=== PATIENT | male | born 1985 | race Caucasian/White ===

== ENCOUNTER 2022-04-02 18:09 | Emergency (ER) | payer SELFPAY ==
[~2022-04-02] VITALS: Ht 185.4 cm; Wt 127.3 kg
[2022-04-02] VITALS (8 sets, daily range): BP systolic 146–171; BP diastolic 78–110
[2022-04-02 19:14] LABS: HEMATOCRIT 42.4 % (39.0-50.0); HEMOGLOBIN 14.1 g/dl (14.0-18.0); IMMATURE GRANULOCYTES 0.6 % (0.0-5.0); MEAN CELL VOLUME 86.7 fL CALC (80.0-100.0); MEAN CORPUSCULAR HGB 28.8 pG CALC (26.0-32.0); MEAN CORPUSCULAR HGB CONC 33.3 g/dL CAL (32.0-36.0); NEUT# 4.96 thou/uL (1.82-7.42); RED BLOOD COUNT 4.89 mill/uL (4.70-6.10); RED CELL DISTRI WIDTH 14.4 % (11.5-15.5)
[2022-04-02 19:24] LABS: ALBUMIN 4.2 g/dL (3.2-5.0); ALKALINE PHOSPHATASE 89 u/l (38-126); AMYLASE 80 u/l (30-110); ANION GAP 14 (6-22 (CALC)); BILIRUBIN, TOTAL 0.8 mg/dL (0.0-1.4); BUN 18 mg/dL (9-20); BUN/CREATININE RATIO 19 (12-20 (CALC)); CARBON DIOXIDE 23 mmol/l (22-30); CHLORIDE 108 mmol/l (95-108); GFR > 60 ML/MIN (>=60 (CALC)); GFR FOR AFR.AMER. > 60 ML/MIN (>=60 (CALC)); SGOT/AST 37 u/l (17-59); SODIUM 141 mmol/l (137-146); TOTAL PROTEIN 7.2 g/dL (6.3-8.2)
[2022-04-02 19:36] LABS: MYOGLOBIN 65 ng/mL (0 - 121)
[2022-04-02 20:39] LABS: URINE BILIRUBIN - DIPSTICK NEGATIVE (NEGATIVE); URINE BLOOD DIPSTICK NEGATIVE (NEGATIVE); URINE COLOR YELLOW; URINE GLUCOSE - DIPSTICK NEGATIVE (NEGATIVE); URINE KETONE NEGATIVE (NEGATIVE); URINE LEUK ESTERASE NEGATIVE (NEGATIVE); URINE NITRITE - DIPSTICK NEGATIVE (Negative); URINE PH 5.5 (4.5-8.0); URINE PROTEIN - DIPSTICK NEGATIVE (NEG-TRACE); URINE SPECIFIC GRAVITY 1.015; URINE UROBILINOGEN - DIPSTICK 0.2 E.U./dL (0.2)
[2022-04-02] MEDS ORDERED: PREVACID30 M3 PO (20:48)
[2022-04-02] MEDS ORDERED: ONDANSETRON4 MG PO (20:48)
[2022-04-03] MEDS ORDERED: HYDROCO/APAP1 TA9 PO (12:51)
== END 2022-04-02 21:26 | disposition home or self-care (01) | DRG 392 ==
LOC: ED 18:09
PROVIDERS: Emergency Medicine
DX: K29.20 Alcoholic gastritis without bleeding (principal); F10.10 Alcohol abuse, uncomplicated; Z20.822 Contact with and (suspected) exposure to COVID-19
CPT/HCPCS: Q9967; S0164

== ENCOUNTER 2022-04-03 09:07 | Emergency (ER) | payer SELFPAY ==
[~2022-04-03] VITALS: Ht 185.4 cm; Wt 125.0 kg
[~2022-04-03 09:07] MED LIST: ONDANSETRON4 MG PO; PREVACID30 M3 PO
[2022-04-03 09:48] VITALS: BP 171/103
[2022-04-03 10:02] VITALS: BP 172/89
[2022-04-03 10:11] LABS: HEMATOCRIT 47.2 % (39.0-50.0); HEMOGLOBIN 15.5 g/dl (14.0-18.0); IMMATURE GRANULOCYTES 0.6 % (0.0-5.0); MEAN CELL VOLUME 88.1 fL CALC (80.0-100.0); MEAN CORPUSCULAR HGB 28.9 pG CALC (26.0-32.0); MEAN CORPUSCULAR HGB CONC 32.8 g/dL CAL (32.0-36.0); NEUT# 6.29 thou/uL (1.82-7.42); RED BLOOD COUNT 5.36 mill/uL (4.70-6.10); RED CELL DISTRI WIDTH 14.4 % (11.5-15.5)
[2022-04-03 10:26] LABS: ALBUMIN 4.4 g/dL (3.2-5.0); ALKALINE PHOSPHATASE 93 u/l (38-126); ANION GAP 15 (6-22 (CALC)); BUN 17 mg/dL (9-20); BUN/CREATININE RATIO 22 (12-20 (CALC)); CARBON DIOXIDE 25 mmol/l (22-30); CHLORIDE 104 mmol/l (95-108); CREATININE 0.8 mg/dL (0.7-1.3); GFR FOR AFR.AMER. > 60 ML/MIN (>=60 (CALC)); GFR OTHER RACES > 60 ML/MIN (>=60 (CALC)); LIPASE 96 u/l (23-300); POTASSIUM 4.5 mmol/l (3.5-5.1); SODIUM 139 mmol/l (137-146); TOTAL PROTEIN 7.8 g/dL (6.3-8.2)
[2022-04-03 10:27] LABS: BILIRUBIN, TOTAL 1.2 mg/dL (0.0-1.4); SGOT/AST 77 u/l (17-59)
[2022-04-03 10:31] VITALS: BP 152/94
[2022-04-03 11:01] VITALS: BP 171/99
[2022-04-03] MEDS ORDERED: HYDROCO/APAP1 TA9 PO (12:51)
[2022-04-03 13:09] VITALS: BP 171/99
== END 2022-04-03 13:20 | disposition home or self-care (01) | DRG 392 ==
LOC: ED 09:07
PROVIDERS: Family Medicine
DX: R10.11 Right upper quadrant pain (principal); F17.200 Nicotine dependence, unspecified, uncomplicated; Z87.11 Personal history of peptic ulcer disease; Z20.822 Contact with and (suspected) exposure to COVID-19
CPT/HCPCS: S0164

== ENCOUNTER 2022-04-12 11:17 | Emergency (ER) | payer SELFPAY ==
[~2022-04-12] VITALS: Ht 185.4 cm; Wt 127.0 kg
[~2022-04-12 11:17] MED LIST changes: +HYDROCO/APAP1 TA9 PO
[2022-04-12] MEDS ORDERED: BUSPIRONE5 MG PO (11:43)
[2022-04-12] MEDS ORDERED: VISTARIL 50MG C50 M1 PO ×2 (11:44→12:23)
[2022-04-12] MEDS ORDERED: TRAZODONE100 MG PO ×2 (11:44→12:23)
[2022-04-12] MEDS ORDERED: BUSPIRONE30 MG PO (12:23)
[2022-04-12 12:32] VITALS: BP 156/112
== END 2022-04-12 12:38 | disposition home or self-care (01) | DRG 951 ==
LOC: ED 11:17
DX: Z76.0 Encounter for issue of repeat prescription (principal); F31.9 Bipolar disorder, unspecified; F41.9 Anxiety disorder, unspecified; F17.290 Nicotine dependence, other tobacco product, uncomplicated

== ENCOUNTER 2022-04-16 12:40 | Emergency (ER) | payer SELFPAY ==
[~2022-04-16] VITALS: Ht 185.4 cm; Wt 127.0 kg
[~2022-04-16 12:40] MED LIST changes: +BUSPIRONE30 MG PO; +BUSPIRONE5 MG PO; +TRAZODONE100 MG PO; +VISTARIL 50MG C50 M1 PO
[2022-04-16] MEDS ORDERED: TRAZODONE100 MG PO (13:20)
[2022-04-16] MEDS ORDERED: BUSPIRONE30 MG PO (13:20)
[2022-04-16] MEDS ORDERED: PREVACID30 M2 PO (13:20)
[2022-04-16] MEDS ORDERED: HYDROXYZ PAM50 MG PO (13:20)
[2022-04-16 13:21] VITALS: BP 152/92
== END 2022-04-16 13:33 | disposition home or self-care (01) | DRG 951 ==
LOC: ED 12:40
DX: Z76.0 Encounter for issue of repeat prescription (principal); F31.9 Bipolar disorder, unspecified; F41.9 Anxiety disorder, unspecified; G47.00 Insomnia, unspecified; K29.70 Gastritis, unspecified, without bleeding; F17.200 Nicotine dependence, unspecified, uncomplicated

== ENCOUNTER 2022-05-04 09:15 | Observation (INO) | payer SELFPAY ==
[2022-05-04] VITALS (14 sets, daily range): BP systolic 129–170; BP diastolic 80–119
[~2022-05-04] VITALS: Ht 185.4 cm; Wt 130.0 kg
[~2022-05-04 09:15] MED LIST changes: +HYDROXYZ PAM50 MG PO; +PREVACID30 M2 PO
--- NOTE | 2022-05-04 09:25 | NUR ---
PATIENT TO ROOM 14
[2022-05-04 10:08] LABS: HEMOGLOBIN 15.6 g/dl (14.0-18.0); IMMATURE GRANULOCYTES 0.5 % (0.0-5.0); MEAN CELL VOLUME 86.7 fL CALC (80.0-100.0); MEAN CORPUSCULAR HGB 28.8 pG CALC (26.0-32.0); MEAN CORPUSCULAR HGB CONC 33.2 g/dL CAL (32.0-36.0); NEUT# 9.69 thou/uL (1.82-7.42); RED BLOOD COUNT 5.42 mill/uL (4.70-6.10); RED CELL DISTRI WIDTH 13.6 % (11.5-15.5)
--- NOTE | 2022-05-04 10:10 | NUR ---
TRANSITION OF CARE REPORT TO ERIC DAY
--- NOTE | 2022-05-04 10:10 | NUR ---
PT TO IMAGING AT THIS TIME, NAD NOTED. A&OX3, RPT RECEIVED FROM PANCHO ADY.
[2022-05-04 10:20] LABS: ALBUMIN 4.8 g/dL (3.2-5.0); ALKALINE PHOSPHATASE 84 u/l (38-126); ANION GAP 15 (6-22 (CALC)); BILIRUBIN, TOTAL 1.1 mg/dL (0.0-1.4); BUN 21 mg/dL (9-20); BUN/CREATININE RATIO 23 (12-20 (CALC)); CARBON DIOXIDE 24 mmol/l (22-30); CHLORIDE 102 mmol/l (95-108); CREATININE 0.9 mg/dL (0.7-1.3); GFR FOR AFR.AMER. > 60 ML/MIN (>=60 (CALC)); GFR OTHER RACES > 60 ML/MIN (>=60 (CALC)); LIPASE 102 u/l (23-300); POTASSIUM 4.6 mmol/l (3.5-5.1); SGOT/AST 49 u/l (17-59); SODIUM 137 mmol/l (137-146); TOTAL PROTEIN 8.6 g/dL (6.3-8.2)
--- NOTE | 2022-05-04 10:23 | NUR ---
PT BACK FROM CT AT THIS TIME, STATES HE HAS PAIN AGAIN WITH NAUSEA. STATES ITS 07/15, PT GIVEN EMESIS BAG. NAD NOTED. FLAP PRESSER NOTIFIED DR WEBBER OF PTS PAIN/NAUSEA. ORDERS PLACED.
--- NOTE | 2022-05-04 10:34 | NUR ---
PT MEDICATED FOR PAIN AT THIS TIME. CALL NGUYEN IN REACH, URINAL PROVIDED AT BEDSIDE. PT AWARE URINE SAMPLE IS NEEDED. NO FURTHER NEEDS AT THIS TIME.
--- NOTE | 2022-05-04 11:08 | NUR ---
PT TO US AT THIS TIME, NAD NOTED.
--- NOTE | 2022-05-04 11:23 | NUR ---
PT BACK FROM US AT THIS TIME. NAD NOTED.
--- NOTE | 2022-05-04 11:30 | NUR ---
PT PROVIDED URINE AT THIS TIME, COLLECTED AND SENT TO LAB. CALL NGUYEN IN REACH, NO FURTHER NEEDS AT THIS TIME. AWAITING US AND UA RESULTS.
[2022-05-04 11:38] LABS: URINE BILIRUBIN - DIPSTICK NEGATIVE (NEGATIVE); URINE BLOOD DIPSTICK NEGATIVE (NEGATIVE); URINE COLOR YELLOW; URINE GLUCOSE - DIPSTICK NEGATIVE (NEGATIVE); URINE KETONE NEGATIVE (NEGATIVE); URINE LEUK ESTERASE NEGATIVE (NEGATIVE); URINE PROTEIN - DIPSTICK NEGATIVE (NEG-TRACE); URINE UROBILINOGEN - DIPSTICK 0.2 E.U./dL (0.2)
[2022-05-04 11:39] LABS: URINE NITRITE - DIPSTICK NEGATIVE (Negative)
[2022-05-04] MEDS ORDERED: ZOFRAN4 MG/TAB PO (12:01)
--- NOTE | 2022-05-04 12:48 | NUR ---
PT REQUESTING PAIN MEDS AT THIS TIME. DR WEBBER NOTIFIED
--- NOTE | 2022-05-04 13:03 | NUR ---
PT REQUESTING SOMETHING TO DRINK AT THIS TIME, PT IS STILL NPO PENDING RESULTS. ADVISED PT, OK WITH POC. CALL NGUYEN IN REACH. NO FURTHER NEEDS AT THIS TIME.
--- NOTE | 2022-05-04 15:26 | NUR ---
RN TO BEDSIDE IN SC FOR ADMINISTRATION OF MEDICATION FOR IMAGING. PT TOLERATED WELL.
--- NOTE | 2022-05-04 16:08 | NUR ---
PT HAS RETURNED FROM NUC MED AT HTIS TIME, NAD NOTED. A&OX3
[2022-05-04] MEDS ORDERED: XANAX1 MG PO (17:32)
--- NOTE | 2022-05-04 18:08 | NUR ---
PT REQUESTING FOOD/DRINK. ADVISED PT THAT HE IS ON CLEAR LIQUID DIET UNTIL MIDNIGHT THEN HE IS NPO FOR SURGERY. PT PROVIDED WITH GATORADE PER REQUEST. NO FURTHER NEEDS AT THIS TIME. AWAITING ADMISSION
--- NOTE | 2022-05-04 18:59 | NUR ---
RPT GIVEN TO SELIN DAY. PT CARE ASSUMED AT THIS TIME.
--- NOTE | 2022-05-04 19:05 | NUR ---
REPORT RECEIVED FROM ERIC DAY.
--- NOTE | 2022-05-04 19:09 | NUR ---
PT PENDING ADMISSION.
--- NOTE | 2022-05-04 19:35 | NUR ---
PT ADMITTED TO [facility], PT TRANSPORTED TO FLOOR WHEEL CHAIR BY ED STAFF, REPORT GIVEN TO BESSIE DAY AT BEDSIDE.
--- NOTE | 2022-05-04 20:00 | NUR ---
PT ADMITTED FROM ER, ARRIVED VIA WHEELCHAIR. PT ALERT AND ORIENTED. REPORTED PAIN 9-10. CONTACTED AND RECEIVED ORDERS FOR DILAUDID 1MG Q2HS PRN. PT RESTING COMFORTABLY. VITAL SIGNS WITHIN NORMAL LIMITS. PT TO BE NPO AFTER MIDNIGHT PENDING CHOLI IN THE MORNING. PTS PERSONAL BELONGINGS AND CALL LIGHT WITHIN REACH. WILL CONTINUE TO MONITOR.
--- NOTE | 2022-05-05 04:00 | NUR ---
0000 AND 0400 SHIFT REASSESSMENT - PT REMAINS IN PAIN AND PAIN IMPROVES WITH PRN DILAUDID. PT NPO SINCE MIDNIGHT. PT SHOWING NO SIGNS OF DISCUSS. WILL TO CONTINUE TO MONITOR CLOSELY. VITAL SIGNS ARE WITHIN NORMAL LIMITS. CALL LIGHT AND PERSONAL BELONGINGS WITHIN REACH.
[2022-05-05 04:41] VITALS: BP 151/101
[2022-05-05 05:19] VITALS: BP 151/101
[2022-05-05 07:22] VITALS: BP 144/81
--- NOTE | 2022-05-05 07:52 | NUR ---
GOT REPORT FROM BLOCK SPLITTER OPERATOR NURSE. PATIENT ASSESSED. AOX4, C/O ABD PAIN. PER OR NURSE, NO PAIN MEDICATION TO BE GIVEN SHE IS TAKING HIM NOW FOR SURGERY. PATIENT VERBALIZED UNDERTSTANDING AND OR NURSE TOOK PATIENT TO OR.
--- NOTE | 2022-05-05 12:00 | NUR ---
LAUREN IS STILL DOWN IN THE OR. STILL AWAITING FOR PATIENT TO RETURN TO FLOOR.
[2022-05-05] MEDS ORDERED: PERCOCET 5/325M1 TAB PO (12:56)
[2022-05-05 14:10] VITALS: BP 163/97
--- NOTE | 2022-05-05 14:30 | NUR ---
GOT PATIENT BACK FROM OR. PATIENT IS AOX3. C/O OF PAIN 5/10 IN ABD. PATIENT HAS 5 LAP SITES ENCLOSED WITH SAMIR COVERED WITH DRY GUAZE AND TEGADERM. PATIENT GIVEN ICE AND TOLERATED AND JUST ADVANCED DIET TO WATER. PATIENT TOLERATING WELL. PATIENT IS REQUESTING TO BE SENT HOME HE IS MORE COMFORTABLE THERE. MD AWARE AND GAVE D/C ORDERS.
[2022-05-05 15:20] VITALS: BP 165/107
--- NOTE | 2022-05-05 15:40 | NUR ---
Discharge instructions given. Patient verbalizes understanding of same. Discharged in stable condition via Wheelchair to Home with family. All belongings sent with pt.
[2022-05-12] MEDS ORDERED: PERCOCET 5/325M1 TAB PO ×2 (09:38→09:42)
[2022-05-12] MEDS ORDERED: OMEPRAZOLE20 MG PO ×2 (09:38→09:42)
== END 2022-05-05 15:39 | disposition home or self-care (01) | DRG 419 ==
LOC: ED 09:15 → ED-I 16:40 → ED 16:52 → MS2 16:53 → ED-I 17:00 → ED 17:00 → ED-I 17:30 → ED 17:30 → MS2 05-05 15:39
PROVIDERS: Family Medicine; ADMIT Surgery; ATTEND Surgery
PROC: 0FT44ZZ Resection of Gallbladder, Percutaneous Endoscopic Approach (ICD-10-PCS; principal; 2022-05-05)
PROC: 0DB58ZX Excision of Esophagus, Via Natural or Artificial Opening Endoscopic, Diagnostic (ICD-10-PCS; 2022-05-05)
PROC: 0DB78ZX Excision of Stomach, Pylorus, Via Natural or Artificial Opening Endoscopic, Diagnostic (ICD-10-PCS; 2022-05-05)
DX: K81.2 Acute cholecystitis with chronic cholecystitis (principal); K21.00 Gastro-esophageal reflux disease with esophagitis, without bleeding; K31.9 Disease of stomach and duodenum, unspecified; K44.9 Diaphragmatic hernia without obstruction or gangrene; F31.9 Bipolar disorder, unspecified; F41.9 Anxiety disorder, unspecified; F17.290 Nicotine dependence, other tobacco product, uncomplicated; Z20.822 Contact with and (suspected) exposure to COVID-19
CPT/HCPCS: A9537; G0378; J0131; J1100; J1650; J2805; Q9967; S0164

== ENCOUNTER 2022-05-07 11:49 | Emergency (ER) | payer SELFPAY ==
[~2022-05-07] VITALS: Ht 185.4 cm; Wt 122.0 kg
[~2022-05-07 11:49] MED LIST changes: +PERCOCET 5/325M1 TAB PO; +XANAX1 MG PO; +ZOFRAN4 MG/TAB PO
[2022-05-07 13:08] LABS: IMMATURE GRANULOCYTES 0.5 % (0.0-5.0); MEAN CELL VOLUME 91.7 fL CALC (80.0-100.0); MEAN CORPUSCULAR HGB 28.9 pG CALC (26.0-32.0); MEAN CORPUSCULAR HGB CONC 31.5 g/dL CAL (32.0-36.0); NEUT# 7.9 thou/uL (1.82-7.42); RED BLOOD COUNT 4.47 mill/uL (4.70-6.10); RED CELL DISTRI WIDTH 13.8 % (11.5-15.5)
[2022-05-07 13:09] LABS: HEMOGLOBIN 12.9 g/dl (14.0-18.0)
[2022-05-07 13:19] LABS: ALBUMIN 4.1 g/dL (3.2-5.0); ALKALINE PHOSPHATASE 78 u/l (38-126); AMYLASE 87 u/l (30-110); BUN 22 mg/dL (9-20); BUN/CREATININE RATIO 21 (12-20 (CALC)); CHLORIDE 104 mmol/l (95-108); CREATININE 1.1 mg/dL (0.7-1.3); GFR FOR AFR.AMER. > 60 ML/MIN (>=60 (CALC)); GFR OTHER RACES > 60 ML/MIN (>=60 (CALC)); LIPASE 90 u/l (23-300); POTASSIUM 4.2 mmol/l (3.5-5.1); SGOT/AST 41 u/l (17-59); SODIUM 141 mmol/l (137-146); TOTAL PROTEIN 7.1 g/dL (6.3-8.2)
[2022-05-07 13:23] LABS: ANION GAP 9 (6-22 (CALC)); BILIRUBIN, TOTAL 0.4 mg/dL (0.0-1.4); CARBON DIOXIDE 32 mmol/l (22-30)
[2022-05-07] MEDS ORDERED: PERCOCET 10/31 COMBO PO ×2 (14:28→15:19)
[2022-05-07] MEDS ORDERED: ONDANSETRON4 MG PO (14:28)
[2022-05-07 14:36] VITALS: BP 145/129
[2022-05-12] MEDS ORDERED: OMEPRAZOLE20 MG PO ×2 (09:38→09:42)
[2022-05-12] MEDS ORDERED: PERCOCET 5/325M1 TAB PO ×2 (09:38→09:42)
== END 2022-05-07 14:45 | disposition home or self-care (01) | DRG 392 ==
LOC: ED 11:49
PROVIDERS: Emergency Medicine
DX: R10.9 Unspecified abdominal pain (principal); R11.10 Vomiting, unspecified; F31.9 Bipolar disorder, unspecified; F41.9 Anxiety disorder, unspecified; F17.200 Nicotine dependence, unspecified, uncomplicated; Z90.49 Acquired absence of other specified parts of digestive tract
CPT/HCPCS: Q9967

== ENCOUNTER 2022-05-16 11:45 | Emergency (ER) | payer SELFPAY ==
[~2022-05-16] VITALS: Ht 185.4 cm; Wt 130.0 kg
[~2022-05-16 11:45] MED LIST changes: +OMEPRAZOLE20 MG PO; +PERCOCET 10/31 COMBO PO
[2022-05-16 12:51] LABS: HEMATOCRIT 40.9 % (39.0-50.0); HEMOGLOBIN 13.2 g/dl (14.0-18.0); IMMATURE GRANULOCYTES 0.6 % (0.0-5.0); MEAN CELL VOLUME 90.9 fL CALC (80.0-100.0); MEAN CORPUSCULAR HGB 29.3 pG CALC (26.0-32.0); MEAN CORPUSCULAR HGB CONC 32.3 g/dL CAL (32.0-36.0); NEUT# 7.34 thou/uL (1.82-7.42); RED BLOOD COUNT 4.5 mill/uL (4.70-6.10); RED CELL DISTRI WIDTH 13.7 % (11.5-15.5)
[2022-05-16 12:58] LABS: ALBUMIN 4.1 g/dL (3.2-5.0); ALKALINE PHOSPHATASE 88 u/l (38-126); AMYLASE 76 u/l (30-110); ANION GAP 10 (6-22 (CALC)); BILIRUBIN, TOTAL 0.3 mg/dL (0.0-1.4); BUN 20 mg/dL (9-20); BUN/CREATININE RATIO 24 (12-20 (CALC)); CARBON DIOXIDE 29 mmol/l (22-30); CHLORIDE 105 mmol/l (95-108); CREATININE 0.8 mg/dL (0.7-1.3); GFR FOR AFR.AMER. > 60 ML/MIN (>=60 (CALC)); GFR OTHER RACES > 60 ML/MIN (>=60 (CALC)); LIPASE 68 u/l (23-300); POTASSIUM 4.2 mmol/l (3.5-5.1); SGOT/AST 28 u/l (17-59); SODIUM 139 mmol/l (137-146); TOTAL PROTEIN 7.2 g/dL (6.3-8.2)
[2022-05-16 15:22] LABS: URINE BILIRUBIN - DIPSTICK NEGATIVE (NEGATIVE); URINE BLOOD DIPSTICK NEGATIVE (NEGATIVE); URINE COLOR YELLOW; URINE GLUCOSE - DIPSTICK NEGATIVE (NEGATIVE); URINE KETONE NEGATIVE (NEGATIVE); URINE LEUK ESTERASE NEGATIVE (NEGATIVE); URINE PROTEIN - DIPSTICK NEGATIVE (NEG-TRACE); URINE UROBILINOGEN - DIPSTICK 0.2 E.U./dL (0.2)
[2022-05-16 15:23] LABS: URINE NITRITE - DIPSTICK NEGATIVE (Negative)
[2022-05-16 16:15] VITALS: BP 142/85
[2022-05-24] MEDS ORDERED: PERCOCET 5/321 COMBO PO (09:27)
== END 2022-05-16 16:23 | disposition short-term general hospital (02) | DRG 862 ==
LOC: ED 11:45
PROVIDERS: Nurse Practitioner
DX: T81.43XA Infection following a procedure, organ and space surgical site, initial encounter (principal); K65.1 Peritoneal abscess; F31.9 Bipolar disorder, unspecified; F41.9 Anxiety disorder, unspecified; F17.200 Nicotine dependence, unspecified, uncomplicated; Y83.6 Removal of other organ (partial) (total) as the cause of abnormal reaction of the patient, or of later complication, without mention of misadventure at the time of the procedure; Z90.49 Acquired absence of other specified parts of digestive tract
CPT/HCPCS: Q9967

== ENCOUNTER 2022-05-23 10:53 | Emergency (ER) | payer SELFPAY ==
[~2022-05-23] VITALS: Ht 185.4 cm; Wt 130.0 kg
[2022-05-23] VITALS (7 sets, daily range): BP systolic 113–141; BP diastolic 70–90
[2022-05-23 12:03] LABS: HEMATOCRIT 37.9 % (39.0-50.0); HEMOGLOBIN 12.1 g/dl (14.0-18.0); IMMATURE GRANULOCYTES 0.3 % (0.0-5.0); MEAN CELL VOLUME 91.3 fL CALC (80.0-100.0); MEAN CORPUSCULAR HGB 29.2 pG CALC (26.0-32.0); MEAN CORPUSCULAR HGB CONC 31.9 g/dL CAL (32.0-36.0); NEUT# 9.26 thou/uL (1.82-7.42); RED BLOOD COUNT 4.15 mill/uL (4.70-6.10); RED CELL DISTRI WIDTH 13.6 % (11.5-15.5)
[2022-05-23 12:19] LABS: ALBUMIN 4.1 g/dL (3.2-5.0); ALKALINE PHOSPHATASE 127 u/l (38-126); ANION GAP 10 (6-22 (CALC)); BUN 17 mg/dL (9-20); BUN/CREATININE RATIO 18 (12-20 (CALC)); CARBON DIOXIDE 29 mmol/l (22-30); CHLORIDE 101 mmol/l (95-108); GFR FOR AFR.AMER. > 60 ML/MIN (>=60 (CALC)); GFR OTHER RACES > 60 ML/MIN (>=60 (CALC)); LIPASE 145 u/l (23-300); POTASSIUM 4.2 mmol/l (3.5-5.1); SGOT/AST 32 u/l (17-59); SODIUM 136 mmol/l (137-146); TOTAL PROTEIN 7.3 g/dL (6.3-8.2)
[2022-05-23 12:25] LABS: BILIRUBIN, TOTAL 0.7 mg/dL (0.0-1.4)
[2022-05-23] MEDS ORDERED: TRAMADOL HYDROC50 M1 PO ×2 (13:44→14:08)
[2022-05-23] MEDS ORDERED: ZOFRAN4 MG/TAB PO (14:04)
[2022-05-23] MEDS ORDERED: TRAZODONE100 MG PO (14:04)
[2022-05-23] MEDS ORDERED: PREVACID30 M2 PO (14:04)
[2022-05-23] MEDS ORDERED: HYDROXYZ PAM50 MG PO (14:04)
[2022-05-23] MEDS ORDERED: BUSPIRONE30 MG PO (14:04)
[2022-05-24] MEDS ORDERED: PERCOCET 5/321 COMBO PO (09:27)
== END 2022-05-23 14:28 | disposition home or self-care (01) | DRG 392 ==
LOC: ED 10:53
PROVIDERS: Family Medicine
DX: R10.11 Right upper quadrant pain (principal); F41.9 Anxiety disorder, unspecified; F31.9 Bipolar disorder, unspecified; F17.210 Nicotine dependence, cigarettes, uncomplicated; Z90.49 Acquired absence of other specified parts of digestive tract
CPT/HCPCS: Q9967

== ENCOUNTER 2022-05-27 13:25 | Emergency (ER) | payer SELFPAY ==
[~2022-05-27] VITALS: Ht 185.4 cm; Wt 126.5 kg
[~2022-05-27 13:25] MED LIST changes: +PERCOCET 5/321 COMBO PO; +TRAMADOL HYDROC50 M1 PO
[2022-05-27 13:33] VITALS: BP 149/98
[2022-05-27 13:59] LABS: HEMOGLOBIN 13.2 g/dl (14.0-18.0); IMMATURE GRANULOCYTES 0.8 % (0.0-5.0); MEAN CELL VOLUME 89.7 fL CALC (80.0-100.0); MEAN CORPUSCULAR HGB 28.9 pG CALC (26.0-32.0); MEAN CORPUSCULAR HGB CONC 32.2 g/dL CAL (32.0-36.0); NEUT# 2.64 thou/uL (1.82-7.42); RED BLOOD COUNT 4.57 mill/uL (4.70-6.10); RED CELL DISTRI WIDTH 13.3 % (11.5-15.5)
[2022-05-27 14:12] LABS: ALBUMIN 4.3 g/dL (3.2-5.0); ALKALINE PHOSPHATASE 98 u/l (38-126); BUN 15 mg/dL (9-20); BUN/CREATININE RATIO 16 (12-20 (CALC)); CARBON DIOXIDE 24 mmol/l (22-30); CHLORIDE 112 mmol/l (95-108); GFR FOR AFR.AMER. > 60 ML/MIN (>=60 (CALC)); GFR OTHER RACES > 60 ML/MIN (>=60 (CALC)); LIPASE 108 u/l (23-300); POTASSIUM 4.2 mmol/l (3.5-5.1); SGOT/AST 34 u/l (17-59)
[2022-05-27 14:13] LABS: ANION GAP 14 (6-22 (CALC)); BILIRUBIN, TOTAL 0.4 mg/dL (0.0-1.4); SODIUM 146 mmol/l (137-146)
[2022-05-27] MEDS ORDERED: HYDROCO/APAP1 TA9 PO (15:01)
[2022-05-27 15:13] VITALS: BP 149/98
== END 2022-05-27 15:25 | disposition home or self-care (01) | DRG 392 ==
LOC: ED 13:25
PROVIDERS: Family Medicine
DX: R10.84 Generalized abdominal pain (principal); F31.9 Bipolar disorder, unspecified; F41.9 Anxiety disorder, unspecified; Z90.49 Acquired absence of other specified parts of digestive tract; F17.200 Nicotine dependence, unspecified, uncomplicated
CPT/HCPCS: Q9967

== ENCOUNTER 2022-05-31 11:10 | Emergency (ER) | payer SELFPAY ==
[~2022-05-31] VITALS: Ht 185.4 cm; Wt 130.0 kg
[2022-05-31] VITALS (7 sets, daily range): BP systolic 122–170; BP diastolic 81–123
[2022-05-31 11:29] LABS: HEMATOCRIT 43.9 % (39.0-50.0); HEMOGLOBIN 14.3 g/dl (14.0-18.0); IMMATURE GRANULOCYTES 0.8 % (0.0-5.0); MEAN CELL VOLUME 88.3 fL CALC (80.0-100.0); MEAN CORPUSCULAR HGB 28.8 pG CALC (26.0-32.0); MEAN CORPUSCULAR HGB CONC 32.6 g/dL CAL (32.0-36.0); NEUT# 7.24 thou/uL (1.82-7.42); RED BLOOD COUNT 4.97 mill/uL (4.70-6.10); RED CELL DISTRI WIDTH 13.1 % (11.5-15.5)
[2022-05-31 11:49] LABS: ALBUMIN 4.4 g/dL (3.2-5.0); ALKALINE PHOSPHATASE 92 u/l (38-126); ANION GAP 12 (6-22 (CALC)); BILIRUBIN, TOTAL 0.4 mg/dL (0.0-1.4); BUN 24 mg/dL (9-20); BUN/CREATININE RATIO 23 (12-20 (CALC)); CARBON DIOXIDE 27 mmol/l (22-30); CHLORIDE 106 mmol/l (95-108); CREATININE 1.1 mg/dL (0.7-1.3); GFR FOR AFR.AMER. > 60 ML/MIN (>=60 (CALC)); GFR OTHER RACES > 60 ML/MIN (>=60 (CALC)); LIPASE 143 u/l (23-300); POTASSIUM 4.1 mmol/l (3.5-5.1); SGOT/AST 31 u/l (17-59); SODIUM 141 mmol/l (137-146); TOTAL PROTEIN 7.8 g/dL (6.3-8.2)
[2022-05-31 12:09] LABS: URINE BILIRUBIN - DIPSTICK NEGATIVE (NEGATIVE); URINE BLOOD DIPSTICK NEGATIVE (NEGATIVE); URINE COLOR YELLOW; URINE GLUCOSE - DIPSTICK NEGATIVE (NEGATIVE); URINE KETONE NEGATIVE (NEGATIVE); URINE LEUK ESTERASE NEGATIVE (NEGATIVE); URINE NITRITE - DIPSTICK NEGATIVE (Negative); URINE PROTEIN - DIPSTICK NEGATIVE (NEG-TRACE); URINE SPECIFIC GRAVITY 1.025; URINE UROBILINOGEN - DIPSTICK 0.2 E.U./dL (0.2)
[2022-05-31] MEDS ORDERED: PEPCID AC20 M1 PO (13:59)
== END 2022-05-31 14:17 | disposition home or self-care (01) | DRG 392 ==
LOC: ED 11:10
PROVIDERS: Family Medicine
DX: R10.13 Epigastric pain (principal); F41.9 Anxiety disorder, unspecified; F31.9 Bipolar disorder, unspecified; F17.200 Nicotine dependence, unspecified, uncomplicated; Z90.49 Acquired absence of other specified parts of digestive tract
CPT/HCPCS: Q9967; S0164

== ENCOUNTER 2022-06-11 00:31 | Inpatient (IN) | payer SELFPAY ==
[~2022-06-11] VITALS: Ht 185.4 cm; Wt 128.0 kg
[~2022-06-11 00:31] MED LIST changes: +PEPCID AC20 M1 PO
[2022-06-11 01:34] LABS: HEMATOCRIT 45.7 % (39.0-50.0); HEMOGLOBIN 15.5 g/dl (14.0-18.0); IMMATURE GRANULOCYTES 0.3 % (0.0-5.0); MEAN CELL VOLUME 83.5 fL CALC (80.0-100.0); MEAN CORPUSCULAR HGB 28.3 pG CALC (26.0-32.0); MEAN CORPUSCULAR HGB CONC 33.9 g/dL CAL (32.0-36.0); NEUT# 19.16 thou/uL (1.82-7.42); RED BLOOD COUNT 5.47 mill/uL (4.70-6.10); RED CELL DISTRI WIDTH 13.5 % (11.5-15.5)
[2022-06-11 01:57] LABS: ALBUMIN 4.5 g/dL (3.2-5.0); ALKALINE PHOSPHATASE 102 u/l (38-126); AMYLASE 92 u/l (30-110); ANION GAP 18 (6-22 (CALC)); BUN 23 mg/dL (9-20); BUN/CREATININE RATIO 23 (12-20 (CALC)); CARBON DIOXIDE 23 mmol/l (22-30); CHLORIDE 103 mmol/l (95-108); GFR FOR AFR.AMER. > 60 ML/MIN (>=60 (CALC)); GFR OTHER RACES > 60 ML/MIN (>=60 (CALC)); LIPASE 121 u/l (23-300); POTASSIUM 4.3 mmol/l (3.5-5.1); SGOT/AST 27 u/l (17-59); SODIUM 139 mmol/l (137-146)
[2022-06-11 02:24] LABS: URINE BLOOD DIPSTICK NEGATIVE (NEGATIVE); URINE COLOR YELLOW; URINE GLUCOSE - DIPSTICK NEGATIVE (NEGATIVE); URINE KETONE 15 mg/dL (NEGATIVE); URINE LEUK ESTERASE NEGATIVE (NEGATIVE); URINE PH 6.5 (4.5-8.0); URINE PROTEIN - DIPSTICK TRACE mg/dL (NEG-TRACE)
[2022-06-11 02:34] LABS: URINE BILIRUBIN - DIPSTICK SMALL (NEGATIVE)
[2022-06-11 02:35] LABS: URINE NITRITE - DIPSTICK NEGATIVE (Negative)
[2022-06-11 04:12] VITALS: BP 157/93
[2022-06-11 07:08] VITALS: BP 154/93
[2022-06-11 10:27] VITALS: BP 137/75
[2022-06-11 14:54] VITALS: BP 148/79
[2022-06-11 18:51] VITALS: BP 156/87
[2022-06-11 19:24] VITALS: BP 156/87
[2022-06-12 03:52] VITALS: BP 137/72
[2022-06-12 04:28] VITALS: BP 137/72
[2022-06-12 06:07] VITALS: BP 127/64
[2022-06-12 06:23] LABS: IMMATURE GRANULOCYTES 0.3 % (0.0-5.0); MEAN CORPUSCULAR HGB 28.6 pG CALC (26.0-32.0); MEAN CORPUSCULAR HGB CONC 32.1 g/dL CAL (32.0-36.0); NEUT# 5.13 thou/uL (1.82-7.42); RED BLOOD COUNT 3.99 mill/uL (4.70-6.10); RED CELL DISTRI WIDTH 13.8 % (11.5-15.5)
[2022-06-12 06:59] LABS: HEMATOCRIT 35.5 % (39.0-50.0); HEMOGLOBIN 11.4 g/dl (14.0-18.0)
[2022-06-12 07:10] LABS: ANION GAP 7 (6-22 (CALC)); BUN 13 mg/dL (9-20); BUN/CREATININE RATIO 14 (12-20 (CALC)); CHLORIDE 104 mmol/l (95-108); CREATININE 0.9 mg/dL (0.7-1.3); GFR FOR AFR.AMER. > 60 ML/MIN (>=60 (CALC)); GFR OTHER RACES > 60 ML/MIN (>=60 (CALC)); MAGNESIUM 2.1 mg/dL (1.6-2.3); POTASSIUM 3.7 mmol/l (3.5-5.1); SODIUM 137 mmol/l (137-146)
[2022-06-12 07:16] LABS: CARBON DIOXIDE 30 mmol/l (22-30)
[2022-06-12 10:51] VITALS: BP 129/38
[2022-06-12 16:00] VITALS: BP 150/91
== END 2022-06-12 17:57 | disposition left against medical advice (07) | DRG 872 ==
LOC: ED 00:31 → ED-I 03:00 → ED 03:18 → MS2 03:19
PROVIDERS: Emergency Medicine; ADMIT Internal Medicine; ATTEND Internal Medicine
DX: A41.9 Sepsis, unspecified organism (principal); K57.20 Diverticulitis of large intestine with perforation and abscess without bleeding; R65.20 Severe sepsis without septic shock; I10 Essential (primary) hypertension; F31.9 Bipolar disorder, unspecified; F41.9 Anxiety disorder, unspecified; Z87.442 Personal history of urinary calculi; Z90.49 Acquired absence of other specified parts of digestive tract; Z20.822 Contact with and (suspected) exposure to COVID-19
CPT/HCPCS: Q9967

== ENCOUNTER 2022-06-15 16:16 | Inpatient (IN) | payer SELFPAY ==
[2022-06-15] VITALS (11 sets, daily range): BP systolic 144–165; BP diastolic 89–113
[~2022-06-15] VITALS: Ht 185.4 cm; Wt 129.0 kg
[2022-06-15 17:20] LABS: IMMATURE GRANULOCYTES 0.3 % (0.0-5.0); MEAN CELL VOLUME 85.8 fL CALC (80.0-100.0); MEAN CORPUSCULAR HGB 28.5 pG CALC (26.0-32.0); MEAN CORPUSCULAR HGB CONC 33.3 g/dL CAL (32.0-36.0); NEUT# 4.69 thou/uL (1.82-7.42); RED BLOOD COUNT 4.94 mill/uL (4.70-6.10); RED CELL DISTRI WIDTH 13.6 % (11.5-15.5)
[2022-06-15 17:28] LABS: HEMATOCRIT 42.4 % (39.0-50.0); HEMOGLOBIN 14.1 g/dl (14.0-18.0)
[2022-06-15 17:35] LABS: ALBUMIN 4.2 g/dL (3.2-5.0); ALKALINE PHOSPHATASE 86 u/l (38-126); AMYLASE 76 u/l (30-110); ANION GAP 13 (6-22 (CALC)); BILIRUBIN, TOTAL 0.4 mg/dL (0.0-1.4); BUN 18 mg/dL (9-20); BUN/CREATININE RATIO 18 (12-20 (CALC)); CARBON DIOXIDE 30 mmol/l (22-30); CHLORIDE 104 mmol/l (95-108); GFR FOR AFR.AMER. > 60 ML/MIN (>=60 (CALC)); GFR OTHER RACES > 60 ML/MIN (>=60 (CALC)); LIPASE 99 u/l (23-300); POTASSIUM 4.1 mmol/l (3.5-5.1); SGOT/AST 24 u/l (17-59); SODIUM 142 mmol/l (137-146); TOTAL PROTEIN 7.2 g/dL (6.3-8.2)
[2022-06-15 18:41] LABS: URINE BILIRUBIN - DIPSTICK NEGATIVE (NEGATIVE); URINE BLOOD DIPSTICK NEGATIVE (NEGATIVE); URINE COLOR YELLOW; URINE GLUCOSE - DIPSTICK NEGATIVE (NEGATIVE); URINE KETONE NEGATIVE (NEGATIVE); URINE LEUK ESTERASE NEGATIVE (NEGATIVE); URINE PROTEIN - DIPSTICK NEGATIVE (NEG-TRACE); URINE SPECIFIC GRAVITY >=1.030; URINE UROBILINOGEN - DIPSTICK 0.2 E.U./dL (0.2)
[2022-06-15 18:42] LABS: URINE NITRITE - DIPSTICK NEGATIVE (Negative)
[2022-06-16] VITALS (8 sets, daily range): BP systolic 111–135; BP diastolic 77–94
[2022-06-17] VITALS (7 sets, daily range): BP systolic 124–145; BP diastolic 72–87
[2022-06-17 05:32] LABS: ANION GAP 9 (6-22 (CALC)); BUN 11 mg/dL (9-20); BUN/CREATININE RATIO 11 (12-20 (CALC)); CARBON DIOXIDE 30 mmol/l (22-30); CHLORIDE 104 mmol/l (95-108); GFR FOR AFR.AMER. > 60 ML/MIN (>=60 (CALC)); GFR OTHER RACES > 60 ML/MIN (>=60 (CALC)); MAGNESIUM 1.9 mg/dL (1.6-2.3); SODIUM 139 mmol/l (137-146)
[2022-06-18 08:04] LABS: IMMATURE GRANULOCYTES 0.6 % (0.0-5.0); MEAN CELL VOLUME 88.1 fL CALC (80.0-100.0); MEAN CORPUSCULAR HGB 28.4 pG CALC (26.0-32.0); MEAN CORPUSCULAR HGB CONC 32.2 g/dL CAL (32.0-36.0); NEUT# 2.29 thou/uL (1.82-7.42); RED BLOOD COUNT 4.05 mill/uL (4.70-6.10); RED CELL DISTRI WIDTH 13.6 % (11.5-15.5)
[2022-06-18 08:07] LABS: HEMATOCRIT 35.7 % (39.0-50.0); HEMOGLOBIN 11.5 g/dl (14.0-18.0)
[2022-06-18 08:14] VITALS: BP 125/76
[2022-06-18 10:13] VITALS: BP 141/78
[2022-06-18 14:05] VITALS: BP 147/76
[2022-06-18 19:00] VITALS: BP 136/76
[2022-06-18 19:03] VITALS: BP 136/76
[2022-06-19 04:56] VITALS: BP 128/76
[2022-06-19 05:31] LABS: HEMATOCRIT 35.4 % (39.0-50.0); HEMOGLOBIN 11.4 g/dl (14.0-18.0); IMMATURE GRANULOCYTES 0.4 % (0.0-5.0); MEAN CELL VOLUME 89.4 fL CALC (80.0-100.0); MEAN CORPUSCULAR HGB 28.8 pG CALC (26.0-32.0); MEAN CORPUSCULAR HGB CONC 32.2 g/dL CAL (32.0-36.0); NEUT# 2.36 thou/uL (1.82-7.42); RED BLOOD COUNT 3.96 mill/uL (4.70-6.10); RED CELL DISTRI WIDTH 13.5 % (11.5-15.5)
[2022-06-19 05:47] LABS: ANION GAP 8 (6-22 (CALC)); BUN 14 mg/dL (9-20); BUN/CREATININE RATIO 13 (12-20 (CALC)); CARBON DIOXIDE 32 mmol/l (22-30); CHLORIDE 104 mmol/l (95-108); CREATININE 1.1 mg/dL (0.7-1.3); GFR FOR AFR.AMER. > 60 ML/MIN (>=60 (CALC)); GFR OTHER RACES > 60 ML/MIN (>=60 (CALC)); POTASSIUM 4.3 mmol/l (3.5-5.1); SODIUM 139 mmol/l (137-146)
[2022-06-19 06:50] VITALS: BP 130/83
[2022-06-19] MEDS ORDERED: LORTAB5 PO (10:23)
[2022-06-19] MEDS ORDERED: CIPROFLOXACN500 MG PO (10:23)
[2022-06-19] MEDS ORDERED: METRONIDAZOLE500 MG PO (10:23)
== END 2022-06-19 12:58 | disposition home or self-care (01) | DRG 392 ==
LOC: ED 16:16 → ED-I 19:03 → ED 19:13 → MS2 19:14
PROVIDERS: Emergency Medicine; ADMIT Internal Medicine; ATTEND Internal Medicine
DX: K57.20 Diverticulitis of large intestine with perforation and abscess without bleeding (principal); F31.9 Bipolar disorder, unspecified; F41.9 Anxiety disorder, unspecified; F17.210 Nicotine dependence, cigarettes, uncomplicated; F17.290 Nicotine dependence, other tobacco product, uncomplicated; T36.8X6A Underdosing of other systemic antibiotics, initial encounter; T37.3X6A Underdosing of other antiprotozoal drugs, initial encounter; Z90.49 Acquired absence of other specified parts of digestive tract; Z87.442 Personal history of urinary calculi; Z20.822 Contact with and (suspected) exposure to COVID-19
CPT/HCPCS: J1650; Q9967

== ENCOUNTER 2022-06-27 03:55 | Emergency (ER) | payer SELFPAY ==
[2022-06-27] VITALS (9 sets, daily range): BP systolic 98–146; BP diastolic 50–89
[~2022-06-27] VITALS: Ht 185.4 cm; Wt 130.4 kg
[~2022-06-27 03:55] MED LIST changes: +CIPROFLOXACN500 MG PO; +LORTAB5 PO; +METRONIDAZOLE500 MG PO
[2022-06-27 04:44] LABS: IMMATURE GRANULOCYTES 0.4 % (0.0-5.0); MEAN CELL VOLUME 87.3 fL CALC (80.0-100.0); MEAN CORPUSCULAR HGB CONC 32.1 g/dL CAL (32.0-36.0); NEUT# 2.77 thou/uL (1.82-7.42); RED BLOOD COUNT 5.18 mill/uL (4.70-6.10); RED CELL DISTRI WIDTH 13.8 % (11.5-15.5)
[2022-06-27 04:48] LABS: URINE BILIRUBIN - DIPSTICK NEGATIVE (NEGATIVE); URINE BLOOD DIPSTICK NEGATIVE (NEGATIVE); URINE COLOR YELLOW; URINE GLUCOSE - DIPSTICK NEGATIVE (NEGATIVE); URINE KETONE NEGATIVE (NEGATIVE); URINE LEUK ESTERASE NEGATIVE (NEGATIVE); URINE PROTEIN - DIPSTICK NEGATIVE (NEG-TRACE); URINE SPECIFIC GRAVITY 1.025
[2022-06-27 04:52] LABS: HEMATOCRIT 45.2 % (39.0-50.0); HEMOGLOBIN 14.5 g/dl (14.0-18.0)
[2022-06-27 04:55] LABS: URINE NITRITE - DIPSTICK NEGATIVE (Negative)
[2022-06-27 05:07] LABS: ALBUMIN 4.4 g/dL (3.2-5.0); ALKALINE PHOSPHATASE 73 u/l (38-126); ANION GAP 16 (6-22 (CALC)); BILIRUBIN, TOTAL 0.9 mg/dL (0.0-1.4); BUN 19 mg/dL (9-20); BUN/CREATININE RATIO 16 (12-20 (CALC)); CARBON DIOXIDE 28 mmol/l (22-30); CHLORIDE 106 mmol/l (95-108); CREATININE 1.2 mg/dL (0.7-1.3); ETHYL ALCOHOL 123 mg/dl (0-30); GFR FOR AFR.AMER. > 60 ML/MIN (>=60 (CALC)); GFR OTHER RACES > 60 ML/MIN (>=60 (CALC)); POTASSIUM 4.3 mmol/l (3.5-5.1); SGOT/AST 45 u/l (17-59); SODIUM 146 mmol/l (137-146); TOTAL PROTEIN 7.9 g/dL (6.3-8.2)
[2022-06-27] MEDS ORDERED: DICYCLOMINE HCL20 MG PO (07:52)
[2022-06-27] MEDS ORDERED: CARAFATE1 GM/10 M1 PO (07:52)
[2022-06-28] MEDS ORDERED: METRONIDAZOLE500 MG PO (04:39)
[2022-06-28] MEDS ORDERED: LORTAB5 PO (04:39)
[2022-06-28] MEDS ORDERED: CIPROFLOXACN500 MG PO (04:39)
== END 2022-06-27 08:14 | disposition home or self-care (01) | DRG 392 ==
LOC: ED 03:55
PROVIDERS: Family Medicine
DX: K57.30 Diverticulosis of large intestine without perforation or abscess without bleeding (principal); F31.9 Bipolar disorder, unspecified; F41.9 Anxiety disorder, unspecified; F17.200 Nicotine dependence, unspecified, uncomplicated; F10.10 Alcohol abuse, uncomplicated; F12.10 Cannabis abuse, uncomplicated; F13.10 Sedative, hypnotic or anxiolytic abuse, uncomplicated; Z87.442 Personal history of urinary calculi
CPT/HCPCS: Q9967

== ENCOUNTER 2022-06-28 02:09 | Emergency (ER) | payer SELFPAY ==
[~2022-06-28] VITALS: Ht 185.4 cm; Wt 129.5 kg
[~2022-06-28 02:09] MED LIST changes: +CARAFATE1 GM/10 M1 PO; +DICYCLOMINE HCL20 MG PO
[2022-06-28 02:14] VITALS: BP 150/92
[2022-06-28 02:31] VITALS: BP 123/96
[2022-06-28 02:59] LABS: HEMATOCRIT 42.3 % (39.0-50.0); HEMOGLOBIN 14.1 g/dl (14.0-18.0); IMMATURE GRANULOCYTES 0.2 % (0.0-5.0); MEAN CELL VOLUME 83.9 fL CALC (80.0-100.0); MEAN CORPUSCULAR HGB CONC 33.3 g/dL CAL (32.0-36.0); NEUT# 3.15 thou/uL (1.82-7.42); RED BLOOD COUNT 5.04 mill/uL (4.70-6.10); RED CELL DISTRI WIDTH 13.4 % (11.5-15.5)
[2022-06-28 03:09] LABS: ALBUMIN 4.4 g/dL (3.2-5.0); ALKALINE PHOSPHATASE 70 u/l (38-126); ANION GAP 16 (6-22 (CALC)); BILIRUBIN, TOTAL 0.8 mg/dL (0.0-1.4); BUN 20 mg/dL (9-20); BUN/CREATININE RATIO 21 (12-20 (CALC)); CARBON DIOXIDE 26 mmol/l (22-30); CHLORIDE 106 mmol/l (95-108); ETHYL ALCOHOL 167 mg/dl (0-30); GFR FOR AFR.AMER. > 60 ML/MIN (>=60 (CALC)); GFR OTHER RACES > 60 ML/MIN (>=60 (CALC)); POTASSIUM 3.9 mmol/l (3.5-5.1); SGOT/AST 49 u/l (17-59); SODIUM 144 mmol/l (137-146); TOTAL PROTEIN 7.6 g/dL (6.3-8.2)
[2022-06-28 03:46] VITALS: BP 139/83
[2022-06-28] MEDS ORDERED: CIPROFLOXACN500 MG PO (04:39)
[2022-06-28] MEDS ORDERED: METRONIDAZOLE500 MG PO (04:39)
[2022-06-28] MEDS ORDERED: LORTAB5 PO (04:39)
[2022-06-28 04:46] VITALS: BP 133/75
[2022-06-28 08:08] VITALS: BP 115/64
== END 2022-06-28 08:10 | disposition home or self-care (01) | DRG 392 ==
LOC: ED 02:09
PROVIDERS: Family Medicine
DX: K57.32 Diverticulitis of large intestine without perforation or abscess without bleeding (principal); F41.9 Anxiety disorder, unspecified; F31.9 Bipolar disorder, unspecified; F17.210 Nicotine dependence, cigarettes, uncomplicated; Z87.442 Personal history of urinary calculi
CPT/HCPCS: J0131

== ENCOUNTER 2022-07-07 08:06 | Emergency (ER) | payer SELFPAY ==
[2022-07-07] VITALS (12 sets, daily range): BP systolic 152–185; BP diastolic 90–141
[~2022-07-07] VITALS: Ht 185.4 cm; Wt 129.2 kg
[2022-07-07 08:51] LABS: URINE BILIRUBIN - DIPSTICK NEGATIVE (NEGATIVE); URINE BLOOD DIPSTICK NEGATIVE (NEGATIVE); URINE COLOR YELLOW; URINE GLUCOSE - DIPSTICK NEGATIVE (NEGATIVE); URINE KETONE NEGATIVE (NEGATIVE); URINE LEUK ESTERASE NEGATIVE (NEGATIVE); URINE PROTEIN - DIPSTICK NEGATIVE (NEG-TRACE); URINE UROBILINOGEN - DIPSTICK 0.2 E.U./dL (0.2)
[2022-07-07 08:57] LABS: HEMATOCRIT 43.8 % (39.0-50.0); HEMOGLOBIN 14.3 g/dl (14.0-18.0); IMMATURE GRANULOCYTES 0.5 % (0.0-5.0); MEAN CELL VOLUME 85.4 fL CALC (80.0-100.0); MEAN CORPUSCULAR HGB 27.9 pG CALC (26.0-32.0); MEAN CORPUSCULAR HGB CONC 32.6 g/dL CAL (32.0-36.0); NEUT# 4.03 thou/uL (1.82-7.42); RED BLOOD COUNT 5.13 mill/uL (4.70-6.10); RED CELL DISTRI WIDTH 13.7 % (11.5-15.5)
[2022-07-07 09:06] LABS: URINE NITRITE - DIPSTICK NEGATIVE (Negative)
[2022-07-07 09:11] LABS: ALBUMIN 4.5 g/dL (3.2-5.0); ALKALINE PHOSPHATASE 79 u/l (38-126); BILIRUBIN, TOTAL 0.6 mg/dL (0.0-1.4); BUN 20 mg/dL (9-20); BUN/CREATININE RATIO 21 (12-20 (CALC)); CARBON DIOXIDE 28 mmol/l (22-30); CHLORIDE 104 mmol/l (95-108); CREATININE 0.9 mg/dL (0.7-1.3); GFR FOR AFR.AMER. > 60 ML/MIN (>=60 (CALC)); GFR OTHER RACES > 60 ML/MIN (>=60 (CALC)); LIPASE 127 u/l (23-300); SGOT/AST 33 u/l (17-59); SODIUM 140 mmol/l (137-146); TOTAL PROTEIN 7.8 g/dL (6.3-8.2)
[2022-07-07 09:14] LABS: ANION GAP 13 (6-22 (CALC)); POTASSIUM 4.5 mmol/l (3.5-5.1)
[2022-07-07] MEDS ORDERED: DICYCLOMINE HCL20 MG PO (11:24)
[2022-07-07] MEDS ORDERED: METRONIDAZOLE500 MG PO (11:24)
[2022-07-07] MEDS ORDERED: OMNICEF300 M1 PO (11:24)
[2022-07-07] MEDS ORDERED: ZOFRAN4 MG/TAB PO (11:24)
[2022-07-07] MEDS ORDERED: LORTAB 5/3255 MG PO ×2 (12:06→12:07)
== END 2022-07-07 12:15 | disposition home or self-care (01) | DRG 392 ==
LOC: ED 08:06
PROVIDERS: Internal Medicine
DX: K57.32 Diverticulitis of large intestine without perforation or abscess without bleeding (principal); F31.9 Bipolar disorder, unspecified; F41.9 Anxiety disorder, unspecified; Z87.442 Personal history of urinary calculi; F17.210 Nicotine dependence, cigarettes, uncomplicated; F17.290 Nicotine dependence, other tobacco product, uncomplicated

== ENCOUNTER 2022-07-13 15:22 | Emergency (ER) | payer SELFPAY ==
[2022-07-13] VITALS (12 sets, daily range): BP systolic 128–148; BP diastolic 90–104
[~2022-07-13] VITALS: Ht 185.4 cm; Wt 129.5 kg
[~2022-07-13 15:22] MED LIST changes: +LORTAB 5/3255 MG PO; +OMNICEF300 M1 PO
[2022-07-13 18:13] LABS: ALBUMIN 4.8 g/dL (3.2-5.0); ALKALINE PHOSPHATASE 85 u/l (38-126); BUN 24 mg/dL (9-20); BUN/CREATININE RATIO 24 (12-20 (CALC)); CHLORIDE 103 mmol/l (95-108); ETHYL ALCOHOL 59 mg/dl (0-30); GFR FOR AFR.AMER. > 60 ML/MIN (>=60 (CALC)); GFR OTHER RACES > 60 ML/MIN (>=60 (CALC)); LIPASE 112 u/l (23-300); POTASSIUM 4.1 mmol/l (3.5-5.1); SODIUM 139 mmol/l (137-146); TOTAL PROTEIN 8.6 g/dL (6.3-8.2)
[2022-07-13 18:14] LABS: ANION GAP 19 (6-22 (CALC)); BILIRUBIN, TOTAL 0.9 mg/dL (0.0-1.4); CARBON DIOXIDE 21 mmol/l (22-30); SGOT/AST 82 u/l (17-59)
[2022-07-13 18:36] LABS: HEMATOCRIT 43.6 % (39.0-50.0); HEMOGLOBIN 14.3 g/dl (14.0-18.0); IMMATURE GRANULOCYTES 0.4 % (0.0-5.0); MEAN CELL VOLUME 83.8 fL CALC (80.0-100.0); MEAN CORPUSCULAR HGB 27.5 pG CALC (26.0-32.0); MEAN CORPUSCULAR HGB CONC 32.8 g/dL CAL (32.0-36.0); NEUT# 7.51 thou/uL (1.82-7.42); RED BLOOD COUNT 5.2 mill/uL (4.70-6.10); RED CELL DISTRI WIDTH 13.6 % (11.5-15.5)
[2022-07-13] MEDS ORDERED: KRISTALOSE20 GM PO (19:42)
== END 2022-07-13 20:25 | disposition home or self-care (01) | DRG 392 ==
LOC: ED 15:22
PROVIDERS: Family Medicine
DX: K59.00 Constipation, unspecified (principal); F41.9 Anxiety disorder, unspecified; F17.290 Nicotine dependence, other tobacco product, uncomplicated; Z87.442 Personal history of urinary calculi; Z87.19 Personal history of other diseases of the digestive system
CPT/HCPCS: Q9967

== ENCOUNTER 2022-08-12 10:34 | Emergency (ER) | payer SELFPAY ==
[2022-08-12] VITALS (14 sets, daily range): BP systolic 136–164; BP diastolic 87–117
[~2022-08-12] VITALS: Ht 185.4 cm; Wt 130.4 kg
[~2022-08-12 10:34] MED LIST changes: +KRISTALOSE20 GM PO
[2022-08-12 11:08] LABS: HEMATOCRIT 46.1 % (39.0-50.0); HEMOGLOBIN 15.2 g/dl (14.0-18.0); IMMATURE GRANULOCYTES 0.7 % (0.0-5.0); MEAN CELL VOLUME 85.1 fL CALC (80.0-100.0); NEUT# 5.27 thou/uL (1.82-7.42); RED BLOOD COUNT 5.42 mill/uL (4.70-6.10); RED CELL DISTRI WIDTH 14.2 % (11.5-15.5)
[2022-08-12 11:27] LABS: ALKALINE PHOSPHATASE 101 u/l (38-126); ANION GAP 17 (6-22 (CALC)); BILIRUBIN, TOTAL 0.7 mg/dL (0.0-1.4); BUN 18 mg/dL (9-20); BUN/CREATININE RATIO 20 (12-20 (CALC)); CARBON DIOXIDE 23 mmol/l (22-30); CHLORIDE 104 mmol/l (95-108); CREATININE 0.9 mg/dL (0.7-1.3); GFR FOR AFR.AMER. > 60 ML/MIN (>=60 (CALC)); GFR OTHER RACES > 60 ML/MIN (>=60 (CALC)); LIPASE 123 u/l (23-300); POTASSIUM 4.1 mmol/l (3.5-5.1); SGOT/AST 53 u/l (17-59); SODIUM 140 mmol/l (137-146); TOTAL PROTEIN 8.6 g/dL (6.3-8.2)
[2022-08-12 13:02] LABS: URINE BILIRUBIN - DIPSTICK NEGATIVE (NEGATIVE); URINE COLOR YELLOW; URINE GLUCOSE - DIPSTICK NEGATIVE (NEGATIVE); URINE KETONE NEGATIVE (NEGATIVE); URINE NITRITE - DIPSTICK NEGATIVE (Negative); URINE PROTEIN - DIPSTICK NEGATIVE (NEG-TRACE); URINE UROBILINOGEN - DIPSTICK 0.2 E.U./dL (0.2)
[2022-08-12 13:03] LABS: URINE BLOOD DIPSTICK NEGATIVE (NEGATIVE); URINE LEUK ESTERASE NEGATIVE (NEGATIVE)
[2022-08-12] MEDS ORDERED: METRONIDAZOLE500 MG PO (13:04)
[2022-08-12] MEDS ORDERED: ZOFRAN4 MG/TAB PO (13:04)
[2022-08-12] MEDS ORDERED: CIPROFLOXACN500 MG PO (13:04)
[2022-08-12] MEDS ORDERED: TRAMADOL HYDROC50 M1 PO (13:04)
== END 2022-08-12 14:12 | disposition home or self-care (01) | DRG 392 ==
LOC: ED 10:34
PROVIDERS: Family Medicine
DX: K57.32 Diverticulitis of large intestine without perforation or abscess without bleeding (principal); F31.9 Bipolar disorder, unspecified; Z87.442 Personal history of urinary calculi; F41.9 Anxiety disorder, unspecified; F17.200 Nicotine dependence, unspecified, uncomplicated

== ENCOUNTER 2022-08-16 01:44 | Emergency (ER) | payer SELFPAY ==
[2022-08-16] VITALS (8 sets, daily range): BP systolic 110–151; BP diastolic 60–109
[~2022-08-16] VITALS: Ht 185.4 cm; Wt 130.0 kg
[2022-08-16 02:19] LABS: IMMATURE GRANULOCYTES 0.8 % (0.0-5.0); MEAN CELL VOLUME 86.1 fL CALC (80.0-100.0); MEAN CORPUSCULAR HGB 28.3 pG CALC (26.0-32.0); MEAN CORPUSCULAR HGB CONC 32.8 g/dL CAL (32.0-36.0); NEUT# 3.45 thou/uL (1.82-7.42); RED BLOOD COUNT 4.46 mill/uL (4.70-6.10); RED CELL DISTRI WIDTH 14.3 % (11.5-15.5)
[2022-08-16 02:35] LABS: ALBUMIN 4.3 g/dL (3.2-5.0); ALKALINE PHOSPHATASE 100 u/l (38-126); BUN 26 mg/dL (9-20); BUN/CREATININE RATIO 22 (12-20 (CALC)); CHLORIDE 101 mmol/l (95-108); CREATININE 1.2 mg/dL (0.7-1.3); GFR FOR AFR.AMER. > 60 ML/MIN (>=60 (CALC)); GFR OTHER RACES > 60 ML/MIN (>=60 (CALC)); LIPASE 118 u/l (23-300); SGOT/AST 47 u/l (17-59); SODIUM 139 mmol/l (137-146); TOTAL PROTEIN 7.4 g/dL (6.3-8.2)
[2022-08-16 02:39] LABS: HEMATOCRIT 38.4 % (39.0-50.0); HEMOGLOBIN 12.6 g/dl (14.0-18.0)
[2022-08-16 02:40] LABS: ANION GAP 13 (6-22 (CALC)); BILIRUBIN, TOTAL 0.3 mg/dL (0.0-1.4); CARBON DIOXIDE 29 mmol/l (22-30)
[2022-08-16 04:45] LABS: URINE BILIRUBIN - DIPSTICK NEGATIVE (NEGATIVE); URINE BLOOD DIPSTICK NEGATIVE (NEGATIVE); URINE COLOR YELLOW; URINE GLUCOSE - DIPSTICK NEGATIVE (NEGATIVE); URINE KETONE NEGATIVE (NEGATIVE); URINE LEUK ESTERASE NEGATIVE (NEGATIVE); URINE PROTEIN - DIPSTICK NEGATIVE (NEG-TRACE); URINE SPECIFIC GRAVITY 1.015; URINE UROBILINOGEN - DIPSTICK 0.2 E.U./dL (0.2)
[2022-08-16 04:47] LABS: URINE NITRITE - DIPSTICK NEGATIVE (Negative)
[2022-08-16] MEDS ORDERED: HYDROCO/APAP1 TA9 PO (04:47)
== END 2022-08-16 05:49 | disposition home or self-care (01) | DRG 392 ==
LOC: ED 01:44
PROVIDERS: Internal Medicine
DX: R10.9 Unspecified abdominal pain (principal)
CPT/HCPCS: Q9967

== ENCOUNTER 2022-08-20 14:12 | Emergency (ER) | payer SELFPAY ==
[2022-08-20] VITALS (13 sets, daily range): BP systolic 83–164; BP diastolic 67–105
[~2022-08-20] VITALS: Ht 185.4 cm; Wt 130.4 kg
[2022-08-20 15:43] LABS: IMMATURE GRANULOCYTES 0.9 % (0.0-5.0); MEAN CELL VOLUME 84.5 fL CALC (80.0-100.0); MEAN CORPUSCULAR HGB 27.8 pG CALC (26.0-32.0); MEAN CORPUSCULAR HGB CONC 32.9 g/dL CAL (32.0-36.0); NEUT# 6.29 thou/uL (1.82-7.42); RED BLOOD COUNT 5.5 mill/uL (4.70-6.10); RED CELL DISTRI WIDTH 14.4 % (11.5-15.5)
[2022-08-20 15:46] LABS: HEMATOCRIT 46.5 % (39.0-50.0); HEMOGLOBIN 15.3 g/dl (14.0-18.0)
[2022-08-20 16:02] LABS: ALBUMIN 4.7 g/dL (3.2-5.0); ALKALINE PHOSPHATASE 86 u/l (38-126); ANION GAP 17 (6-22 (CALC)); BILIRUBIN, TOTAL 0.9 mg/dL (0.0-1.4); BUN 21 mg/dL (9-20); BUN/CREATININE RATIO 21 (12-20 (CALC)); CARBON DIOXIDE 23 mmol/l (22-30); CHLORIDE 103 mmol/l (95-108); GFR FOR AFR.AMER. > 60 ML/MIN (>=60 (CALC)); GFR OTHER RACES > 60 ML/MIN (>=60 (CALC)); LIPASE 65 u/l (23-300); POTASSIUM 4.2 mmol/l (3.5-5.1); SGOT/AST 49 u/l (17-59); SODIUM 139 mmol/l (137-146); TOTAL PROTEIN 8.1 g/dL (6.3-8.2)
[2022-08-20 17:31] LABS: URINE BILIRUBIN - DIPSTICK NEGATIVE (NEGATIVE); URINE BLOOD DIPSTICK NEGATIVE (NEGATIVE); URINE COLOR YELLOW; URINE GLUCOSE - DIPSTICK NEGATIVE (NEGATIVE); URINE KETONE NEGATIVE (NEGATIVE); URINE LEUK ESTERASE NEGATIVE (NEGATIVE); URINE NITRITE - DIPSTICK NEGATIVE (Negative); URINE PH 6.5 (4.5-8.0); URINE PROTEIN - DIPSTICK TRACE mg/dL (NEG-TRACE); URINE SPECIFIC GRAVITY 1.025; URINE UROBILINOGEN - DIPSTICK 0.2 E.U./dL (0.2)
[2022-08-20] MEDS ORDERED: AMOX/K CLAV875 M1 PO (18:00)
[2022-08-20] MEDS ORDERED: HYDROCO/APAP1 TA9 PO (18:03)
== END 2022-08-20 18:39 | disposition home or self-care (01) | DRG 392 ==
LOC: ED 14:12
PROVIDERS: Family Medicine
DX: K57.92 Diverticulitis of intestine, part unspecified, without perforation or abscess without bleeding (principal); R10.32 Left lower quadrant pain; R10.31 Right lower quadrant pain
CPT/HCPCS: Q9967

== ENCOUNTER 2022-09-08 18:36 | Emergency (ER) | payer SELFPAY ==
[~2022-09-08] VITALS: Ht 185.4 cm; Wt 118.1 kg
[~2022-09-08 18:36] MED LIST changes: +AMOX/K CLAV875 M1 PO
[2022-09-08 19:08] LABS: HEMATOCRIT 41.1 % (39.0-50.0); HEMOGLOBIN 13.7 g/dl (14.0-18.0); IMMATURE GRANULOCYTES 0.9 % (0.0-5.0); MEAN CORPUSCULAR HGB 28.7 pG CALC (26.0-32.0); MEAN CORPUSCULAR HGB CONC 33.3 g/dL CAL (32.0-36.0); NEUT# 4.81 thou/uL (1.82-7.42); RED BLOOD COUNT 4.78 mill/uL (4.70-6.10); RED CELL DISTRI WIDTH 14.3 % (11.5-15.5)
[2022-09-08 19:08] LABS: URINE BILIRUBIN - DIPSTICK NEGATIVE (NEGATIVE); URINE BLOOD DIPSTICK NEGATIVE (NEGATIVE); URINE COLOR YELLOW; URINE GLUCOSE - DIPSTICK NEGATIVE (NEGATIVE); URINE KETONE NEGATIVE (NEGATIVE); URINE LEUK ESTERASE NEGATIVE (NEGATIVE); URINE PH 6.5 (4.5-8.0); URINE PROTEIN - DIPSTICK NEGATIVE (NEG-TRACE); URINE SPECIFIC GRAVITY <=1.005; URINE UROBILINOGEN - DIPSTICK 0.2 E.U./dL (0.2)
[2022-09-08 19:09] LABS: URINE NITRITE - DIPSTICK NEGATIVE (Negative)
[2022-09-08 19:19] LABS: ALBUMIN 4.4 g/dL (3.2-5.0); ALKALINE PHOSPHATASE 91 u/l (38-126); ANION GAP 15 (6-22 (CALC)); BILIRUBIN, TOTAL 0.4 mg/dL (0.0-1.4); BUN 15 mg/dL (9-20); BUN/CREATININE RATIO 15 (12-20 (CALC)); CARBON DIOXIDE 25 mmol/l (22-30); CHLORIDE 108 mmol/l (95-108); GFR FOR AFR.AMER. > 60 ML/MIN (>=60 (CALC)); GFR OTHER RACES > 60 ML/MIN (>=60 (CALC)); LIPASE 98 u/l (23-300); POTASSIUM 3.8 mmol/l (3.5-5.1); SGOT/AST 42 u/l (17-59); SODIUM 145 mmol/l (137-146); TOTAL PROTEIN 7.9 g/dL (6.3-8.2)
[2022-09-08] MEDS ORDERED: LORTAB5 PO (21:19)
[2022-09-08] MEDS ORDERED: CIPROFLOXACN500 MG PO (21:19)
[2022-09-08] MEDS ORDERED: METRONIDAZOLE500 MG PO (21:19)
[2022-09-08 21:25] VITALS: BP 174/79
== END 2022-09-08 21:41 | disposition home or self-care (01) | DRG 392 ==
LOC: ED 18:36
PROVIDERS: Family Medicine
DX: K57.32 Diverticulitis of large intestine without perforation or abscess without bleeding (principal); F31.9 Bipolar disorder, unspecified; F41.9 Anxiety disorder, unspecified; F17.200 Nicotine dependence, unspecified, uncomplicated; Z87.442 Personal history of urinary calculi
CPT/HCPCS: Q9967

== ENCOUNTER 2022-09-09 10:09 | Emergency (ER) | payer SELFPAY ==
[~2022-09-09] VITALS: Ht 185.4 cm; Wt 136.0 kg
[2022-09-09 10:44] VITALS: BP 156/97
[2022-09-09 10:46] VITALS: BP 146/88
[2022-09-09 12:35] VITALS: BP 146/88
== END 2022-09-09 12:37 | disposition left against medical advice (07) | DRG 951 ==
LOC: ED 10:09
DX: Z53.21 Procedure and treatment not carried out due to patient leaving prior to being seen by health care provider (principal)

== ENCOUNTER 2022-09-12 20:25 | Emergency (ER) | payer SELFPAY ==
[~2022-09-12] VITALS: Ht 185.4 cm; Wt 131.3 kg
[2022-09-12 20:33] VITALS: BP 117/81
[2022-09-12 20:49] VITALS: BP 117/81
[2022-09-13] MEDS ORDERED: OMEPRAZOLE DR40 MG PO (21:15)
== END 2022-09-12 21:18 | disposition left against medical advice (07) | DRG 392 ==
LOC: ED 20:25
DX: K29.70 Gastritis, unspecified, without bleeding (principal); K57.30 Diverticulosis of large intestine without perforation or abscess without bleeding; F10.129 Alcohol abuse with intoxication, unspecified; F12.10 Cannabis abuse, uncomplicated; F31.9 Bipolar disorder, unspecified; F41.9 Anxiety disorder, unspecified; Z87.442 Personal history of urinary calculi; Z76.5 Malingerer [conscious simulation]; Z53.29 Procedure and treatment not carried out because of patient's decision for other reasons

== ENCOUNTER 2022-09-13 09:41 | Observation (INO) | payer SELFPAY ==
[2022-09-13] VITALS (20 sets, daily range): BP systolic 114–183; BP diastolic 50–109
[~2022-09-13] VITALS: Ht 185.4 cm; Wt 132.0 kg
[2022-09-13 11:14] LABS: HEMATOCRIT 46.2 % (39.0-50.0); HEMOGLOBIN 15.5 g/dl (14.0-18.0); IMMATURE GRANULOCYTES 0.6 % (0.0-5.0); MEAN CELL VOLUME 83.5 fL CALC (80.0-100.0); MEAN CORPUSCULAR HGB CONC 33.5 g/dL CAL (32.0-36.0); NEUT# 4.82 thou/uL (1.82-7.42); RED BLOOD COUNT 5.53 mill/uL (4.70-6.10); RED CELL DISTRI WIDTH 14.5 % (11.5-15.5)
[2022-09-13 11:18] LABS: ALBUMIN 4.9 g/dL (3.2-5.0); ALKALINE PHOSPHATASE 98 u/l (38-126); ANION GAP 17 (6-22 (CALC)); BUN 21 mg/dL (9-20); BUN/CREATININE RATIO 22 (12-20 (CALC)); CARBON DIOXIDE 23 mmol/l (22-30); CHLORIDE 105 mmol/l (95-108); GFR FOR AFR.AMER. > 60 ML/MIN (>=60 (CALC)); GFR OTHER RACES > 60 ML/MIN (>=60 (CALC)); LIPASE 99 u/l (23-300); POTASSIUM 4.4 mmol/l (3.5-5.1); SGOT/AST 69 u/l (17-59); SODIUM 139 mmol/l (137-146); TOTAL PROTEIN 8.2 g/dL (6.3-8.2)
[2022-09-13 11:19] LABS: BILIRUBIN, TOTAL 1.2 mg/dL (0.0-1.4)
[2022-09-13 13:38] LABS: URINE BLOOD DIPSTICK NEGATIVE (NEGATIVE); URINE COLOR YELLOW; URINE GLUCOSE - DIPSTICK NEGATIVE (NEGATIVE); URINE KETONE NEGATIVE (NEGATIVE); URINE LEUK ESTERASE NEGATIVE (NEGATIVE); URINE PH 6.5 (4.5-8.0); URINE PROTEIN - DIPSTICK TRACE mg/dL (NEG-TRACE); URINE SPECIFIC GRAVITY 1.025
[2022-09-13 13:39] LABS: URINE BILIRUBIN - DIPSTICK SMALL (NEGATIVE)
[2022-09-13 13:40] LABS: URINE NITRITE - DIPSTICK NEGATIVE (Negative)
[2022-09-13] MEDS ORDERED: OMEPRAZOLE DR40 MG PO (21:15)
[2022-09-14 04:17] VITALS: BP 136/71
[2022-09-14 05:25] LABS: IMMATURE GRANULOCYTES 0.3 % (0.0-5.0); MEAN CELL VOLUME 86.7 fL CALC (80.0-100.0); MEAN CORPUSCULAR HGB 28.5 pG CALC (26.0-32.0); MEAN CORPUSCULAR HGB CONC 32.9 g/dL CAL (32.0-36.0); NEUT# 3.39 thou/uL (1.82-7.42); RED BLOOD COUNT 4.42 mill/uL (4.70-6.10); RED CELL DISTRI WIDTH 14.5 % (11.5-15.5)
[2022-09-14 05:28] LABS: HEMATOCRIT 38.3 % (39.0-50.0); HEMOGLOBIN 12.6 g/dl (14.0-18.0)
[2022-09-14 05:45] LABS: ALKALINE PHOSPHATASE 77 u/l (38-126); BUN 25 mg/dL (9-20); BUN/CREATININE RATIO 22 (12-20 (CALC)); CHLORIDE 103 mmol/l (95-108); CREATININE 1.1 mg/dL (0.7-1.3); GFR FOR AFR.AMER. > 60 ML/MIN (>=60 (CALC)); GFR OTHER RACES > 60 ML/MIN (>=60 (CALC)); MAGNESIUM 2.1 mg/dL (1.6-2.3); POTASSIUM 3.8 mmol/l (3.5-5.1); SGOT/AST 50 u/l (17-59); SODIUM 138 mmol/l (137-146); TOTAL PROTEIN 6.9 g/dL (6.3-8.2)
[2022-09-14 05:56] LABS: ANION GAP 9 (6-22 (CALC)); BILIRUBIN, TOTAL 0.7 mg/dL (0.0-1.4); CARBON DIOXIDE 30 mmol/l (22-30)
[2022-09-14 06:58] VITALS: BP 166/97
[2022-09-14] MEDS ORDERED: CIPROFLOXACN500 MG PO (13:24)
[2022-09-14] MEDS ORDERED: METRONIDAZOLE500 MG PO (13:24)
[2022-09-14] MEDS ORDERED: LORTAB5 PO (13:25)
== END 2022-09-14 14:03 | disposition home or self-care (01) | DRG 392 ==
LOC: ED 09:41 → ED-I 18:14 → ED 18:25 → MS2 18:26
PROVIDERS: Internal Medicine; ADMIT Internal Medicine; ATTEND Internal Medicine
DX: K57.32 Diverticulitis of large intestine without perforation or abscess without bleeding (principal); F11.20 Opioid dependence, uncomplicated; F31.9 Bipolar disorder, unspecified; F41.9 Anxiety disorder, unspecified; F17.290 Nicotine dependence, other tobacco product, uncomplicated
CPT/HCPCS: G0378; Q9967

== ENCOUNTER 2022-09-17 23:07 | Emergency (ER) | payer SELFPAY ==
[~2022-09-17] VITALS: Ht 185.4 cm; Wt 133.0 kg
[~2022-09-17 23:07] MED LIST changes: +OMEPRAZOLE DR40 MG PO
[2022-09-17 23:12] VITALS: BP 130/94
[2022-09-17 23:16] VITALS: BP 140/97
[2022-09-17 23:31] VITALS: BP 146/89
[2022-09-17 23:36] LABS: HEMATOCRIT 42.3 % (39.0-50.0); HEMOGLOBIN 14.3 g/dl (14.0-18.0); IMMATURE GRANULOCYTES 0.6 % (0.0-5.0); MEAN CELL VOLUME 82.9 fL CALC (80.0-100.0); MEAN CORPUSCULAR HGB CONC 33.8 g/dL CAL (32.0-36.0); NEUT# 4.17 thou/uL (1.82-7.42); RED BLOOD COUNT 5.1 mill/uL (4.70-6.10); RED CELL DISTRI WIDTH 14.2 % (11.5-15.5)
[2022-09-17 23:46] VITALS: BP 172/107
[2022-09-17 23:50] LABS: ALBUMIN 4.2 g/dL (3.2-5.0); ALKALINE PHOSPHATASE 79 u/l (38-126); AMYLASE 100 u/l (30-110); ANION GAP 15 (6-22 (CALC)); BILIRUBIN, TOTAL 0.6 mg/dL (0.0-1.4); BUN 20 mg/dL (9-20); BUN/CREATININE RATIO 20 (12-20 (CALC)); CHLORIDE 108 mmol/l (95-108); GFR FOR AFR.AMER. > 60 ML/MIN (>=60 (CALC)); GFR OTHER RACES > 60 ML/MIN (>=60 (CALC)); LIPASE 156 u/l (23-300); SGOT/AST 43 u/l (17-59); SODIUM 142 mmol/l (137-146); TOTAL PROTEIN 7.7 g/dL (6.3-8.2)
[2022-09-17 23:51] LABS: CARBON DIOXIDE 23 mmol/l (22-30)
[2022-09-18] VITALS (9 sets, daily range): BP systolic 133–172; BP diastolic 87–120
[2022-09-18 01:01] LABS: URINE BILIRUBIN - DIPSTICK NEGATIVE (NEGATIVE); URINE BLOOD DIPSTICK NEGATIVE (NEGATIVE); URINE COLOR YELLOW; URINE GLUCOSE - DIPSTICK NEGATIVE (NEGATIVE); URINE KETONE NEGATIVE (NEGATIVE); URINE LEUK ESTERASE NEGATIVE (NEGATIVE); URINE NITRITE - DIPSTICK NEGATIVE (Negative); URINE PH 5.5 (4.5-8.0); URINE PROTEIN - DIPSTICK NEGATIVE (NEG-TRACE); URINE SPECIFIC GRAVITY >=1.030; URINE UROBILINOGEN - DIPSTICK 0.2 E.U./dL (0.2)
[2022-09-18] MEDS ORDERED: ONDANSETRON4 MG PO (01:57)
[2022-09-18] MEDS ORDERED: PREVACID30 M3 PO (01:57)
== END 2022-09-18 02:14 | disposition home or self-care (01) | DRG 392 ==
LOC: ED 23:07
PROVIDERS: Emergency Medicine
DX: R10.32 Left lower quadrant pain (principal); F10.10 Alcohol abuse, uncomplicated; I10 Essential (primary) hypertension; F41.9 Anxiety disorder, unspecified; F32.A Depression, unspecified; K21.9 Gastro-esophageal reflux disease without esophagitis; F17.200 Nicotine dependence, unspecified, uncomplicated; Z76.5 Malingerer [conscious simulation]
CPT/HCPCS: Q9967; S0164

== ENCOUNTER 2022-10-16 13:20 | Emergency (ER) | payer SELFPAY ==
[~2022-10-16] VITALS: Ht 185.4 cm; Wt 120.0 kg
[2022-10-16] VITALS (14 sets, daily range): BP systolic 105–187; BP diastolic 63–148
[2022-10-16 16:54] LABS: HEMATOCRIT 38.2 % (39.0-50.0); HEMOGLOBIN 12.6 g/dl (14.0-18.0); IMMATURE GRANULOCYTES 0.4 % (0.0-5.0); MEAN CELL VOLUME 87.4 fL CALC (80.0-100.0); MEAN CORPUSCULAR HGB 28.8 pG CALC (26.0-32.0); NEUT# 3.41 thou/uL (1.82-7.42); RED BLOOD COUNT 4.37 mill/uL (4.70-6.10); RED CELL DISTRI WIDTH 13.4 % (11.5-15.5)
[2022-10-16 17:05] LABS: ALBUMIN 4.1 g/dL (3.2-5.0); ALKALINE PHOSPHATASE 80 u/l (38-126); ANION GAP 10 (6-22 (CALC)); BILIRUBIN, TOTAL 0.4 mg/dL (0.0-1.4); BUN 22 mg/dL (9-20); BUN/CREATININE RATIO 20 (12-20 (CALC)); CHLORIDE 102 mmol/l (95-108); CREATININE 1.1 mg/dL (0.7-1.3); GFR FOR AFR.AMER. > 60 ML/MIN (>=60 (CALC)); GFR OTHER RACES > 60 ML/MIN (>=60 (CALC)); LIPASE 87 u/l (23-300); POTASSIUM 3.8 mmol/l (3.5-5.1); SGOT/AST 58 u/l (17-59); SODIUM 138 mmol/l (137-146); TOTAL PROTEIN 7.2 g/dL (6.3-8.2)
[2022-10-16 17:06] LABS: CARBON DIOXIDE 30 mmol/l (22-30)
[2022-10-16] MEDS ORDERED: CIPROFLOXACN500 MG PO (18:51)
[2022-10-16] MEDS ORDERED: METRONIDAZOLE500 MG PO (18:51)
[2022-10-16] MEDS ORDERED: ZOFRAN4 MG/TAB PO (18:51)
== END 2022-10-16 19:18 | disposition home or self-care (01) | DRG 392 ==
LOC: ED 13:20
PROVIDERS: Family Medicine
DX: R10.9 Unspecified abdominal pain (principal); I10 Essential (primary) hypertension; F32.A Depression, unspecified; K21.9 Gastro-esophageal reflux disease without esophagitis; F17.210 Nicotine dependence, cigarettes, uncomplicated

== ENCOUNTER 2022-11-09 04:59 | Emergency (ER) | payer SELFPAY ==
[2022-11-09] VITALS (12 sets, daily range): BP systolic 128–165; BP diastolic 76–99
[~2022-11-09] VITALS: Ht 185.4 cm; Wt 136.4 kg
[2022-11-09 05:56] LABS: BASO% 0.7 % (0-3); EOS% 1.3 % (0-8); HEMOGLOBIN 14.1 g/dl (14.0-18.0); IMMATURE GRANULOCYTES 1.2 % (0.0-5.0); LYMPH% 18.3 % (15-41); MEAN CELL VOLUME 84.2 fL CALC (80.0-100.0); MEAN CORPUSCULAR HGB 28.3 pG CALC (26.0-32.0); MEAN CORPUSCULAR HGB CONC 33.6 g/dL CAL (32.0-36.0); MONO% 8.5 % (2-13); NEUT# 7.42 thou/uL (1.82-7.42); RED BLOOD COUNT 4.99 mill/uL (4.70-6.10); RED CELL DISTRI WIDTH 13.4 % (11.5-15.5)
[2022-11-09 06:07] LABS: AMYLASE 103 u/l (30-110); BILIRUBIN, TOTAL 0.4 mg/dL (0.0-1.4); BUN 19 mg/dL (9-20); BUN/CREATININE RATIO 20 (12-20 (CALC)); CHLORIDE 108 mmol/l (95-108); GFR FOR AFR.AMER. > 60 ML/MIN (>=60 (CALC)); GFR OTHER RACES > 60 ML/MIN (>=60 (CALC)); LIPASE 345 u/l (23-300); POTASSIUM 3.8 mmol/l (3.5-5.1); SODIUM 142 mmol/l (137-146); TOTAL PROTEIN 7.4 g/dL (6.3-8.2)
[2022-11-09 06:08] LABS: ALKALINE PHOSPHATASE 135 u/l (38-126); ANION GAP 15 (6-22 (CALC)); CARBON DIOXIDE 23 mmol/l (22-30); SGOT/AST 102 u/l (17-59)
[2022-11-09 06:26] LABS: URINE BILIRUBIN - DIPSTICK NEGATIVE (NEGATIVE); URINE BLOOD DIPSTICK NEGATIVE (NEGATIVE); URINE COLOR YELLOW; URINE GLUCOSE - DIPSTICK NEGATIVE (NEGATIVE); URINE KETONE NEGATIVE (NEGATIVE); URINE LEUK ESTERASE NEGATIVE (NEGATIVE); URINE PROTEIN - DIPSTICK NEGATIVE (NEG-TRACE); URINE SPECIFIC GRAVITY 1.025; URINE UROBILINOGEN - DIPSTICK 0.2 E.U./dL (0.2)
[2022-11-09 06:31] LABS: URINE NITRITE - DIPSTICK NEGATIVE (Negative)
[2022-11-09] MEDS ORDERED: TRAMADOL HYDROC50 M1 PO (08:15)
[2022-11-09] MEDS ORDERED: AMOX/K CLAV875 M1 PO (08:15)
[2022-11-09] MEDS ORDERED: ZOFRAN4 MG/TAB PO (08:15)
== END 2022-11-09 08:39 | disposition home or self-care (01) | DRG 391 ==
LOC: ED 04:59
PROVIDERS: Emergency Medicine
DX: K57.32 Diverticulitis of large intestine without perforation or abscess without bleeding (principal); U07.1 COVID-19; F10.10 Alcohol abuse, uncomplicated; Y90.6 Blood alcohol level of 120-199 mg/100 ml
CPT/HCPCS: Q9967

== ENCOUNTER 2022-11-14 16:51 | Emergency (ER) | payer SELFPAY ==
[2022-11-14] VITALS (19 sets, daily range): BP systolic 137–186; BP diastolic 89–130
[~2022-11-14] VITALS: Ht 185.4 cm; Wt 136.0 kg
[2022-11-14 17:26] LABS: BASO% 0.6 % (0-3); EOS% 0.6 % (0-8); HEMATOCRIT 41.3 % (39.0-50.0); HEMOGLOBIN 14.1 g/dl (14.0-18.0); IMMATURE GRANULOCYTES 0.3 % (0.0-5.0); LYMPH% 28.4 % (15-41); MEAN CELL VOLUME 85.7 fL CALC (80.0-100.0); MEAN CORPUSCULAR HGB 29.3 pG CALC (26.0-32.0); MEAN CORPUSCULAR HGB CONC 34.1 g/dL CAL (32.0-36.0); MONO% 11.9 % (2-13); NEUT% 58.2 % (42-76); RED BLOOD COUNT 4.82 mill/uL (4.70-6.10); RED CELL DISTRI WIDTH 14.4 % (11.5-15.5)
[2022-11-14 17:47] LABS: ALBUMIN 4.3 g/dL (3.2-5.0); ALKALINE PHOSPHATASE 92 u/l (38-126); ANION GAP 14 (6-22 (CALC)); BILIRUBIN, TOTAL 0.4 mg/dL (0.0-1.4); BUN 22 mg/dL (9-20); BUN/CREATININE RATIO 23 (12-20 (CALC)); CARBON DIOXIDE 28 mmol/l (22-30); CHLORIDE 108 mmol/l (95-108); CREATININE 0.9 mg/dL (0.7-1.3); GFR FOR AFR.AMER. > 60 ML/MIN (>=60 (CALC)); GFR OTHER RACES > 60 ML/MIN (>=60 (CALC)); LIPASE 188 u/l (23-300); POTASSIUM 3.5 mmol/l (3.5-5.1); SGOT/AST 46 u/l (17-59); SODIUM 146 mmol/l (137-146); TOTAL PROTEIN 7.5 g/dL (6.3-8.2)
[2022-11-14 18:23] LABS: ETHYL ALCOHOL 331 mg/dl (0-30)
[2022-11-15] VITALS (17 sets, daily range): BP systolic 133–166; BP diastolic 81–120
[2022-11-15] MEDS ORDERED: PROTONIX40 M2 PO (06:27)
[2022-11-15] MEDS ORDERED: PROCHLORPER25 MG RE (06:47)
[2022-11-15] MEDS ORDERED: ZOFRAN4 MG/TAB PO (07:25)
[2022-11-15] MEDS ORDERED: AMOX/K CLAV875 M1 PO (07:25)
== END 2022-11-15 08:07 | disposition home or self-care (01) | DRG 392 ==
LOC: ED 16:51
PROVIDERS: Family Medicine
DX: R10.32 Left lower quadrant pain (principal); F10.129 Alcohol abuse with intoxication, unspecified; Y90.8 Blood alcohol level of 240 mg/100 ml or more

== ENCOUNTER 2022-11-20 12:53 | Observation (INO) | payer SELFPAY ==
[2022-11-20] VITALS (9 sets, daily range): BP systolic 133–161; BP diastolic 77–114
[~2022-11-20] VITALS: Ht 185.4 cm; Wt 145.0 kg
[~2022-11-20 12:53] MED LIST changes: +PROCHLORPER25 MG RE; +PROTONIX40 M2 PO
--- NOTE | 2022-11-20 14:45 | NUR ---
PATIENT ESCORTED TO ROOM IN WHEELCHAIR AND PROVIDER NOTIFIED OF PATIENT STATUS.
[2022-11-20 15:18] LABS: BASO% 0.4 % (0-3); EOS% 1.1 % (0-8); HEMATOCRIT 43.5 % (39.0-50.0); HEMOGLOBIN 14.5 g/dl (14.0-18.0); IMMATURE GRANULOCYTES 0.3 % (0.0-5.0); LYMPH% 14.4 % (15-41); MEAN CELL VOLUME 88.2 fL CALC (80.0-100.0); MEAN CORPUSCULAR HGB 29.4 pG CALC (26.0-32.0); MEAN CORPUSCULAR HGB CONC 33.3 g/dL CAL (32.0-36.0); MONO% 9.8 % (2-13); NEUT# 6.91 thou/uL (1.82-7.42); RED BLOOD COUNT 4.93 mill/uL (4.70-6.10); RED CELL DISTRI WIDTH 14.7 % (11.5-15.5)
[2022-11-20 15:39] LABS: ALBUMIN 4.7 g/dL (3.2-5.0); ALKALINE PHOSPHATASE 73 u/l (38-126); AMYLASE 83 u/l (30-110); BILIRUBIN, TOTAL 0.5 mg/dL (0.0-1.4); BUN 17 mg/dL (9-20); BUN/CREATININE RATIO 13 (12-20 (CALC)); CARBON DIOXIDE 27 mmol/l (22-30); CHLORIDE 103 mmol/l (95-108); CREATININE 1.3 mg/dL (0.7-1.3); GFR FOR AFR.AMER. > 60 ML/MIN (>=60 (CALC)); GFR OTHER RACES > 60 ML/MIN (>=60 (CALC)); LIPASE 146 u/l (23-300); SGOT/AST 46 u/l (17-59); TOTAL PROTEIN 7.9 g/dL (6.3-8.2)
[2022-11-20 15:51] LABS: ANION GAP 11 (6-22 (CALC)); POTASSIUM 4.4 mmol/l (3.5-5.1); SODIUM 137 mmol/l (137-146)
[2022-11-20 16:22] LABS: URINE BLOOD DIPSTICK NEGATIVE (NEGATIVE); URINE GLUCOSE - DIPSTICK NEGATIVE (NEGATIVE); URINE KETONE TRACE mg/dL (NEGATIVE); URINE LEUK ESTERASE NEGATIVE (NEGATIVE); URINE PROTEIN - DIPSTICK 30 mg/dL (NEG-TRACE); URINE SPECIFIC GRAVITY >=1.030; URINE UROBILINOGEN - DIPSTICK 0.2 E.U./dL (0.2)
[2022-11-20 16:24] LABS: URINE BILIRUBIN - DIPSTICK MODERATE (NEGATIVE)
[2022-11-20 16:25] LABS: URINE COLOR AMBER; URINE NITRITE - DIPSTICK NEGATIVE (Negative)
[2022-11-20 16:38] LABS: URINE MUCUS FEW hpf (NONE-FEW); URINE RBC 0-2 RBC/hpf (0-5)
--- NOTE | 2022-11-20 16:42 | NUR ---
PATIENT RESTING IN BED. NO ACUTE DISTRESS NOTED
--- NOTE | 2022-11-20 17:45 | NUR ---
Reassessment of patient completed. No distress noted.
--- NOTE | 2022-11-20 18:46 | NUR ---
PATIENT EDUCATED ON ADMISSION. PATIENT CONTACTING FAMILY TO NOTIFY
--- NOTE | 2022-11-20 19:05 | NUR ---
pt arrived to [facility] via wc accompanied by Nataliya Tripathi RN; report received;
--- NOTE | 2022-11-20 19:22 | NUR ---
Reassessment of patient completed. No distress noted.
--- NOTE | 2022-11-20 19:37 | NUR ---
pt awake sitting at the side of the bed; admission assessment completed at this time; pt c/c of lower abd pain from "diverticulitis" and alcohol withdrawl; pt admits to no alcohol for days; no n/v; resp even and unlabored; hr reg; tele monitor intact; abd soft/distended; pt admits to bm 11/20/22; admits to voiding without complication; no urine to inspect at this time; #20 flushed and patent to rac; plan of care/ meds reviewed; pt request "morphine 4 but 2 will work" for pain; will notify MD of pt needs/request; call light within reach; will continue to monitor
--- NOTE | 2022-11-20 20:18 | NUR ---
Dr Taylor called per service writer advisor; informed of pt request for "morphine, zofran and vistaril" and well as a diet; orders received and on the chart
--- NOTE | 2022-11-20 21:15 | NUR ---
Dr Taylor notified of pt request for Xanax; orders received and on chart
--- NOTE | 2022-11-20 23:50 | NUR ---
asleep; easily aroused; offers no complaints; iv intact and patent; tele sr on monitor; vs obtained; call light within reach; will continue to monitor
--- NOTE | 2022-11-21 04:00 | NUR ---
resting with eyes closed; sr on monitor; will continue to monitor
[2022-11-21 04:17] VITALS: BP 144/108
[2022-11-21 06:46] VITALS: BP 133/62
[2022-11-21 10:30] VITALS: BP 127/67
[2022-11-21 14:25] VITALS: BP 112/58
--- NOTE | 2022-11-21 17:58 | NUR ---
PATIENT RECIEVED A SHOWER TODAY AND HAD TWO LARGE BM.PATIENT REPORTS PAIN CONSTANT IN LOWER ABD AREA. PATIENT HAS A BANANNA BAG IV GOING WITH INTERMITTEN ABX. CIWA IS BETWEEN 8-9. PRN MEDS GIVEN THROUGHT THE DAY. PATIENT WAS SLEEPING MOST OF THE DAY SHIFT. PATIENT ENCOURAGE TO USE URINAL SINCE HE IS SELF CARE. WILL CONTINUE TO MONITOR. CALL LIGHT WITHIN REACH
[2022-11-21 18:59] VITALS: BP 117/68
--- NOTE | 2022-11-21 20:00 | NUR ---
RECEIVED REPORT FROM DAY SHIFT RN. PT IS RESTING IN BEDIN LOW SEMI-OCHOA'S POSITION, AWAKE, WATCHING TV. ASSESSMENT COMPLETED. PT IS A&OX3 AND ABLE TO MAKE NEEDS KNONW. NO SIGNS OR SYMPTOMS OF PAIN OR DISTRESS NOTED AT THIS TIME. PT ASKED FOR HIS XANAX, LIBRIUM, AND CLONIDINE TO HELP HIS WITH HIS SHAKING, MINIMAL, AND TO HELP HIM GO TO SLEEP. PT IS ON FULL LIQUID DIET. DENIES ANY PAIN AT THIS TIME. IV IS PATENT AND FLUSHES WELL. CALL LIGHT AND BEDSIDE TABLE WITHIN REACH, SAFETY PRECAUTIONS IN PLACE.
[2022-11-22 00:08] VITALS: BP 100/76
--- NOTE | 2022-11-22 00:24 | NUR ---
PT IS RESTIN IN BED IN LOW SEMI-OCHOA'S POSITON, EYES CLOSED. BREATHING EVEN AND UNLABORED. NO SIGNS OF PAIN OR DISTRESS NOTED AT THIS TIME. CALL LIGHT AND BEDSIDE TABLE WITHIN REACH.
--- NOTE | 2022-11-22 03:59 | NUR ---
PT RESTING IN BED IN LOW SEMI-OCHOA'S POSITON, AWAKE. TRUSS ASSEMBLER IN ROOM DRAWING MORNING LABS. PT IS ON ROOM AIR, BREATHING IS EVEN AND UNLABORED. TELEMETRY IN PLACE, MONITORED BY ED. NO SIGNS OF PAIN OR DISTRESS NOTED NOR VERBALIZED BY PT AT THIS TIME. PT IS A&OX3 AND ABLE TO COMMUNICATE NEEDS. IV IS PATENT AND FLUSHES WELL. CALL LIGHT AND BEDSIDE TABLE WITHIN REACH, SAFETY PRECAUTIONS IN PLACE.
[2022-11-22 04:00] VITALS: BP 109/50
[2022-11-22 06:09] LABS: ALKALINE PHOSPHATASE 57 u/l (38-126); ANION GAP 5 (6-22 (CALC)); BILIRUBIN, TOTAL 0.4 mg/dL (0.0-1.4); BUN 14 mg/dL (9-20); BUN/CREATININE RATIO 14 (12-20 (CALC)); CARBON DIOXIDE 30 mmol/l (22-30); CHLORIDE 107 mmol/l (95-108); GFR FOR AFR.AMER. > 60 ML/MIN (>=60 (CALC)); GFR OTHER RACES > 60 ML/MIN (>=60 (CALC)); POTASSIUM 4.5 mmol/l (3.5-5.1); SGOT/AST 38 u/l (17-59); SODIUM 137 mmol/l (137-146)
[2022-11-22 06:10] LABS: ALBUMIN 3.5 g/dL (3.2-5.0); TOTAL PROTEIN 6.3 g/dL (6.3-8.2)
[2022-11-22 06:12] LABS: BASO% 0.8 % (0-3); EOS% 3.9 % (0-8); IMMATURE GRANULOCYTES 0.8 % (0.0-5.0); LYMPH% 29.8 % (15-41); MEAN CELL VOLUME 90.5 fL CALC (80.0-100.0); MEAN CORPUSCULAR HGB 29.9 pG CALC (26.0-32.0); MEAN CORPUSCULAR HGB CONC 33.1 g/dL CAL (32.0-36.0); MONO% 11.9 % (2-13); NEUT# 2.04 thou/uL (1.82-7.42); NEUT% 52.8 % (42-76); RED BLOOD COUNT 4.01 mill/uL (4.70-6.10); RED CELL DISTRI WIDTH 14.9 % (11.5-15.5)
[2022-11-22 06:15] LABS: HEMATOCRIT 36.3 % (39.0-50.0)
[2022-11-22 06:17] VITALS: BP 132/78
--- NOTE | 2022-11-22 07:00 | NUR ---
Receive report from Tj RUBIN.
[2022-11-22 07:57] VITALS: BP 132/78
--- NOTE | 2022-11-22 08:00 | NUR ---
Patient alert and oriented x3. Resting in bed at this time. Pt no refer pain or discomfort. Assessment head-to toe complete. Patient is educated aboud medications and nursing plan for today. Pt refer understand.
[2022-11-22] MEDS ORDERED: AMOX/K CLAV875 M1 PO (11:12)
[2022-11-22] MEDS ORDERED: TRAMADOL HYDROC50 M1 PO (11:13)
--- NOTE | 2022-11-22 12:05 | NUR ---
Discharge instructions given. Patient verbalizes understanding of same. Discharged in stable condition via Wheelchair to Home with staff. All belongings sent with pt.
== END 2022-11-22 11:39 | disposition home or self-care (01) | DRG 392 ==
LOC: ED 12:53 → ED-I 17:40 → ED 18:11 → MS2 18:12
PROVIDERS: Nurse Practitioner; Nurse Practitioner Family; ADMIT Internal Medicine; ATTEND Internal Medicine
DX: K57.32 Diverticulitis of large intestine without perforation or abscess without bleeding (principal); F10.139 Alcohol abuse with withdrawal, unspecified; Y90.0 Blood alcohol level of less than 20 mg/100 ml; F14.10 Cocaine abuse, uncomplicated; F13.10 Sedative, hypnotic or anxiolytic abuse, uncomplicated; F12.10 Cannabis abuse, uncomplicated; I10 Essential (primary) hypertension; F41.9 Anxiety disorder, unspecified; K21.9 Gastro-esophageal reflux disease without esophagitis; F17.210 Nicotine dependence, cigarettes, uncomplicated; F31.9 Bipolar disorder, unspecified; Z87.442 Personal history of urinary calculi
CPT/HCPCS: G0378; J1650; J2060; Q9967

== ENCOUNTER 2022-12-24 22:23 | Emergency (ER) | payer SELFPAY ==
[~2022-12-24] VITALS: Ht 185.4 cm; Wt 139.2 kg
[2022-12-24 23:11] VITALS: BP 159/127
[2022-12-24 23:15] VITALS: BP 160/118
[2022-12-24] MEDS ORDERED: VISTARIL 50MG C50 M1 PO (23:22)
[2022-12-24 23:31] LABS: BASO% 0.4 % (0-3); EOS% 0.8 % (0-8); IMMATURE GRANULOCYTES 0.3 % (0.0-5.0); LYMPH% 13.8 % (15-41); MEAN CORPUSCULAR HGB 27.4 pG CALC (26.0-32.0); MEAN CORPUSCULAR HGB CONC 32.5 g/dL CAL (32.0-36.0); NEUT# 12.2 thou/uL (1.82-7.42); NEUT% 77.7 % (42-76); RED BLOOD COUNT 5.26 mill/uL (4.70-6.10); RED CELL DISTRI WIDTH 14.3 % (11.5-15.5)
[2022-12-24 23:32] LABS: HEMATOCRIT 44.3 % (39.0-50.0); HEMOGLOBIN 14.4 g/dl (14.0-18.0); MEAN CELL VOLUME 84.2 fL CALC (80.0-100.0)
[2022-12-24 23:46] VITALS: BP 157/93
[2022-12-24 23:50] LABS: ANION GAP 15 (6-22 (CALC)); BILIRUBIN, TOTAL 0.3 mg/dL (0.2-1.3); BUN 22 mg/dL (9-20); BUN/CREATININE RATIO 15 (12-20 (CALC)); CARBON DIOXIDE 24 mmol/l (22-30); CHLORIDE 103 mmol/l (95-108); CREATININE 1.4 mg/dL (0.7-1.3); GFR FOR AFR.AMER. > 60 ML/MIN (>=60 (CALC)); GFR OTHER RACES 57 ML/MIN (>=60 (CALC)); LIPASE 169 u/l (23-300); MAGNESIUM 1.9 mg/dL (1.6-2.3); POTASSIUM 4.1 mmol/l (3.5-5.1); SGOT/AST 30 u/l (17-59); SODIUM 138 mmol/l (137-146)
[2022-12-24 23:52] LABS: ALBUMIN 4.7 g/dL (3.2-5.0); ALKALINE PHOSPHATASE 91 u/l (38-126); TOTAL PROTEIN 8.3 g/dL (6.3-8.2)
[2022-12-25] MEDS ORDERED: METRONIDAZOLE500 MG PO (01:42)
[2022-12-25] MEDS ORDERED: DICYCLOMINE10 MG PO (01:42)
[2022-12-25] MEDS ORDERED: OMNI-PAC300 MG PO (01:42)
[2022-12-25 02:16] VITALS: BP 157/93
[2022-12-25] MEDS ORDERED: TRAMADOL HYDROC50 M1 PO (15:04)
[2022-12-25] MEDS ORDERED: AMOX/K CLAV875 M1 PO (15:04)
== END 2022-12-25 02:20 | disposition home or self-care (01) | DRG 392 ==
LOC: ED 22:23
PROVIDERS: Internal Medicine
DX: K57.92 Diverticulitis of intestine, part unspecified, without perforation or abscess without bleeding (principal); R10.9 Unspecified abdominal pain; I10 Essential (primary) hypertension; K21.9 Gastro-esophageal reflux disease without esophagitis; F31.9 Bipolar disorder, unspecified; F10.10 Alcohol abuse, uncomplicated; F17.210 Nicotine dependence, cigarettes, uncomplicated

== ENCOUNTER 2022-12-25 14:23 | Emergency (ER) | payer SELFPAY ==
[~2022-12-25] VITALS: Ht 185.4 cm; Wt 136.0 kg
[~2022-12-25 14:23] MED LIST changes: +DICYCLOMINE10 MG PO; +OMNI-PAC300 MG PO
[2022-12-25] MEDS ORDERED: AMOX/K CLAV875 M1 PO (15:04)
[2022-12-25] MEDS ORDERED: TRAMADOL HYDROC50 M1 PO (15:04)
[2022-12-25 15:24] VITALS: BP 157/101
== END 2022-12-25 15:25 | disposition home or self-care (01) | DRG 392 ==
LOC: ED 14:23
DX: K57.32 Diverticulitis of large intestine without perforation or abscess without bleeding (principal); I10 Essential (primary) hypertension; F32.A Depression, unspecified

== ENCOUNTER 2022-12-29 13:08 | Emergency (ER) | payer SELFPAY ==
[2022-12-29] VITALS (17 sets, daily range): BP systolic 132–179; BP diastolic 87–142
[~2022-12-29] VITALS: Ht 185.4 cm; Wt 136.0 kg
[2022-12-29 16:30] LABS: BASO% 0.4 % (0-3); EOS% 0.4 % (0-8); HEMATOCRIT 48.1 % (39.0-50.0); HEMOGLOBIN 15.4 g/dl (14.0-18.0); IMMATURE GRANULOCYTES 0.2 % (0.0-5.0); LYMPH% 12.9 % (15-41); MEAN CELL VOLUME 84.7 fL CALC (80.0-100.0); MEAN CORPUSCULAR HGB 27.1 pG CALC (26.0-32.0); MONO% 8.2 % (2-13); NEUT# 9.94 thou/uL (1.82-7.42); NEUT% 77.9 % (42-76); RED BLOOD COUNT 5.68 mill/uL (4.70-6.10); RED CELL DISTRI WIDTH 14.7 % (11.5-15.5)
[2022-12-29 16:44] LABS: ALBUMIN 4.9 g/dL (3.2-5.0); ALKALINE PHOSPHATASE 88 u/l (38-126); ANION GAP 12 (6-22 (CALC)); BILIRUBIN, TOTAL 0.3 mg/dL (0.2-1.3); BUN 16 mg/dL (9-20); BUN/CREATININE RATIO 13 (12-20 (CALC)); CARBON DIOXIDE 25 mmol/l (22-30); CHLORIDE 105 mmol/l (95-108); CREATININE 1.2 mg/dL (0.7-1.3); GFR FOR AFR.AMER. > 60 ML/MIN (>=60 (CALC)); GFR OTHER RACES > 60 ML/MIN (>=60 (CALC)); LIPASE 118 u/l (23-300); POTASSIUM 4.3 mmol/l (3.5-5.1); SGOT/AST 36 u/l (17-59); SODIUM 138 mmol/l (137-146)
[2022-12-29] MEDS ORDERED: METRONIDAZOLE500 MG PO (19:47)
[2022-12-29] MEDS ORDERED: CIPROFLOXACN500 MG PO (19:47)
[2022-12-29] MEDS ORDERED: TRAMADOL HCL50 MG PO (19:47)
== END 2022-12-29 20:55 | disposition home or self-care (01) | DRG 392 ==
LOC: ED 13:08
PROVIDERS: Emergency Medicine
DX: K57.92 Diverticulitis of intestine, part unspecified, without perforation or abscess without bleeding (principal); I10 Essential (primary) hypertension; F31.9 Bipolar disorder, unspecified; F17.200 Nicotine dependence, unspecified, uncomplicated

== ENCOUNTER 2023-01-03 18:42 | Inpatient (IN) | payer SELFPAY ==
[~2023-01-03] VITALS: Ht 185.4 cm; Wt 136.4 kg
[2023-01-03] VITALS (8 sets, daily range): BP systolic 121–148; BP diastolic 78–93
[~2023-01-03 18:42] MED LIST changes: +TRAMADOL HCL50 MG PO
--- NOTE | 2023-01-03 19:52 | NUR ---
PT AMBULATED INDEPENDENTLY FROM WAITING RM TO ER RM 15. PT HOOKED UP TO MONITOR. PT STATES HE HAS ABD PAIN OF 10, NAD.
[2023-01-03 20:12] LABS: BASO% 0.6 % (0-3); EOS% 1.5 % (0-8); HEMATOCRIT 43.8 % (39.0-50.0); IMMATURE GRANULOCYTES 0.3 % (0.0-5.0); LYMPH% 16.6 % (15-41); MEAN CELL VOLUME 85.2 fL CALC (80.0-100.0); MEAN CORPUSCULAR HGB 27.2 pG CALC (26.0-32.0); MONO% 7.6 % (2-13); NEUT# 5.78 thou/uL (1.82-7.42); NEUT% 73.4 % (42-76); RED BLOOD COUNT 5.14 mill/uL (4.70-6.10); RED CELL DISTRI WIDTH 14.8 % (11.5-15.5)
[2023-01-03 20:23] LABS: ALBUMIN 4.6 g/dL (3.2-5.0); ALKALINE PHOSPHATASE 62 u/l (38-126); ANION GAP 16 (6-22 (CALC)); BILIRUBIN, TOTAL 0.3 mg/dL (0.2-1.3); BUN 19 mg/dL (9-20); BUN/CREATININE RATIO 16 (12-20 (CALC)); CARBON DIOXIDE 23 mmol/l (22-30); CHLORIDE 107 mmol/l (95-108); CREATININE 1.1 mg/dL (0.7-1.3); GFR FOR AFR.AMER. > 60 ML/MIN (>=60 (CALC)); GFR OTHER RACES > 60 ML/MIN (>=60 (CALC)); LIPASE 105 u/l (23-300); POTASSIUM 4.2 mmol/l (3.5-5.1); SGOT/AST 44 u/l (17-59); SODIUM 142 mmol/l (137-146); TOTAL PROTEIN 7.9 g/dL (6.3-8.2)
[2023-01-04] VITALS (16 sets, daily range): BP systolic 136–172; BP diastolic 80–126
--- NOTE | 2023-01-04 02:30 | NUR ---
REPORT GIVEN OVER PHONE TO KILLIAN DAY AND MICHAEL SENT
--- NOTE | 2023-01-04 02:40 | NUR ---
PT PUT IN GOWN AND TRANSFERED FROM ED TO 278 BY CARRYING WALLET AND PHONE PT TRANSFERED FROM TO BED INDEPENDENTLY WITH NAD.
--- NOTE | 2023-01-04 03:10 | NUR ---
PT BROUGHT UP FROM ER VIA WHEELCHAIR AT 0240. PT AMBULATED WITH STEADY GAIT INTO BED. RECEIVED REPORT FROM ER NURSE. PT IS A/OX3. COMPLAINS OF PAIN 10 OUT OF 10 IN ABD AREA. ABD TENDERNESS AND GAURDING NOTED. PT IV SITE APPEARS HEALTHY WITH LACTATED RINGER RUNNING PER EMAR. PT ASSESSMENT COMPLETED. PT BLOOD PRESSURE ELEVATED. SYSTOLIC >170. INFORMED SUPERVISOR WOUND PHYSICIAN OF PT STATUS. T.O.R.B AWAITING [employer] APPROVAL. PT EDUCATED ON PLAN OF CARE AND DIET. CALL LIGHT WITHIN REACH AND SAFETY PRECAUTIONS IN PLACE. WILL FOLLOW UP ON BLOOD PRESSURE AND PAIN.
--- NOTE | 2023-01-04 03:44 | NUR ---
PACK OF CIGARS AND DIE ATTACHER OBTAINED FROM PT. PUT IN BIOHAZARD BAG AND LABELED. PLACE IN MED ROOM. PT INFORMED OF PROTOCOL.
--- NOTE | 2023-01-04 07:28 | NUR ---
PT RESTING IN SEMI FOWLERS POSITION. A/OX3 ASSESSMENT AND VS COMPLETED.HEART RHYHM NORM RESPIRATIONS ON ROOM AIR. IV SITE NOTED NS INFUSING. PT DENIES ADDITIONAL NEEDS AT THE TIME PT NPO. ALL SAFETY PRECAUTIONS IN PLACE.
--- NOTE | 2023-01-04 09:00 | NUR ---
PT C/O PAIN MEDICATION PROVIDED ONCE CALLED PHARMACY FOR VERIFICATION, MEDICATION PROVIDED. PT C/O SEVERE PAIN MD CONTACTED PER PT COMPLAINT MD STATED NO OTHER PAIN MEDICATIONS TO BE PROVIDED AT THE MOMENT. PT NOTIFIED. NEEDS REINFORCEMENT.
--- NOTE | 2023-01-04 12:00 | NUR ---
PT STATED PAIN NOW 8/10 OFF PAIN SCALE. PT STATED XANAX HELPED REDUCE PAIN AND ANXIETY. PT TO BE MEDICATED PER EMAR.
[2023-01-04 14:14] LABS: URINE BILIRUBIN - DIPSTICK NEGATIVE (NEGATIVE); URINE BLOOD DIPSTICK NEGATIVE (NEGATIVE); URINE COLOR YELLOW; URINE GLUCOSE - DIPSTICK NEGATIVE (NEGATIVE); URINE KETONE 40 mg/dL (NEGATIVE); URINE LEUK ESTERASE NEGATIVE (NEGATIVE); URINE PH 5.5 (4.5-8.0); URINE PROTEIN - DIPSTICK NEGATIVE (NEG-TRACE); URINE SPECIFIC GRAVITY >=1.030; URINE UROBILINOGEN - DIPSTICK 0.2 E.U./dL (0.2)
[2023-01-04 14:17] LABS: URINE NITRITE - DIPSTICK NEGATIVE (Negative)
--- NOTE | 2023-01-04 16:57 | NUR ---
PT TO BE PROVIDED WITH PAIN MEDICATION. TO BE UPDATED ON PLAN OF CARE. STAY NPO PER NEW ORDERS FOR PROCEDURE FOR 109901/05/23
--- NOTE | 2023-01-04 18:13 | NUR ---
PT VOIDED X1 STATED ALOT . UNKNOWN AMOUNT.
--- NOTE | 2023-01-04 20:00 | NUR ---
RECEIVED REPORT FROM NURSE LATRELL, PATIENT RESTING IN BED, WATCHING TV AND TALKING ON THE PHONE, HAS ONGOING IV NS @ 100CC/HR INFUSING WELL ON RFA, PAIN ON LLQ, PATIENT CONTINUE TO TAKE NULITELY FOR THE COLONOSCOPY PREPARATION, CALL LIGHT IN REACH.
[2023-01-05] VITALS (14 sets, daily range): BP systolic 124–162; BP diastolic 75–115
--- NOTE | 2023-01-05 | NUR ---
PATIENT RESTING IN BED, EYES CLOSED, NOT IN DISTRESS, ON NPO, DUE ZOSYN GIVEN.
--- NOTE | 2023-01-05 05:03 | NUR ---
PATIENT RESTING IN BED, REMAINS ON NPO, CALL LIGHT IN REACH.
[2023-01-05 06:41] LABS: BASO% 0.9 % (0-3); IMMATURE GRANULOCYTES 0.3 % (0.0-5.0); LYMPH% 32.7 % (15-41); MEAN CELL VOLUME 87.2 fL CALC (80.0-100.0); MEAN CORPUSCULAR HGB 27.4 pG CALC (26.0-32.0); MEAN CORPUSCULAR HGB CONC 31.4 g/dL CAL (32.0-36.0); MONO% 11.1 % (2-13); NEUT# 1.63 thou/uL (1.82-7.42); RED BLOOD COUNT 4.31 mill/uL (4.70-6.10); RED CELL DISTRI WIDTH 14.8 % (11.5-15.5)
[2023-01-05 06:48] LABS: HEMATOCRIT 37.6 % (39.0-50.0); HEMOGLOBIN 11.8 g/dl (14.0-18.0)
[2023-01-05 07:16] LABS: ALKALINE PHOSPHATASE 53 u/l (38-126); BILIRUBIN, TOTAL 0.4 mg/dL (0.2-1.3); BUN 13 mg/dL (9-20); BUN/CREATININE RATIO 13 (12-20 (CALC)); CHLORIDE 107 mmol/l (95-108); GFR FOR AFR.AMER. > 60 ML/MIN (>=60 (CALC)); GFR OTHER RACES > 60 ML/MIN (>=60 (CALC)); SGOT/AST 39 u/l (17-59); SODIUM 137 mmol/l (137-146)
[2023-01-05 07:22] LABS: ALBUMIN 3.4 g/dL (3.2-5.0); ANION GAP 6 (6-22 (CALC)); CARBON DIOXIDE 28 mmol/l (22-30)
--- NOTE | 2023-01-05 08:00 | NUR ---
ASSUMED CARE OF PT. PT IN NO DISTRESS. CURRENTLY NPO PENDING COLONOSCOPY. PT AWARE OF STATUS. PROCEDURE SCHEDULED FOR 11 OCLOCK. PLAN OF CARE DISCUSSED.
--- NOTE | 2023-01-05 13:40 | NUR ---
PT BACK FROM COLONOSCOPY. C/O PAIN TO ABDMONEN. REQUESTING LORTAB. DENIES ANY VOMITING, NAUSEA. POST PROCEDURE VITALS SET UP.
--- NOTE | 2023-01-05 16:00 | NUR ---
PT WALKING IN ROOM, NO DISCOMFORT NOTED. TOLERATED CLEAR LIQUID DIET, WITHOUT PAIN AND NAUSEA/VOMITING. WILL CONITNUE TO GENA
--- NOTE | 2023-01-05 19:41 | NUR ---
RECIEVED REPORT. PT A/O X3 RESTING IN SEMI FOWLERS POSITION. RESPIRATIONS EVEN AND UNLABORED ON ROOM AIR. EXPIRATORY WHEEZING NOTED UPON ASCULATATION. HEART RHYTHM NORMAL. BOWEL SOUNDS ACTIVE, BM 01/05/23. #20G RFA INFUSING WITH IVF PER ORDER. PT C/O OF 8/10 LOWER ABD PAIN, PT TO BE MEDICATED PER EMAR. PT DENIES OF ANY ADDITIONAL NEEDS. ALL SAFTEY PRECAUTIONS ARE IN PLACE WITH CALL LIGHT IN REACH
--- NOTE | 2023-01-06 00:36 | NUR ---
PT SLEEPING IN SEMI FOWLERS POSITION RESPIRATIONS EVEN AND UNLABORED ON ROOM AIR. #20G RFA INFUSING PER ORDER. NO SIGNS OF ANY DISTRESS. ALL SAFTEY PRECAUTIONS ARE IN PLACE WITH CALL LIGHT IN REACH
[2023-01-06 04:00] VITALS: BP 121/91
--- NOTE | 2023-01-06 04:24 | NUR ---
PT SLEEPING IN SEMI FOWLERS POSITION. RESPIRATIONS EVEN AND UNLABORED ON ROOM AIR. #20G RFA INFUSING WITH IVF PER ORDER, SITE PATENT. NO SIGNS OF ANY DISTRESS AT THIS TIME. ALL SAFTEY PRECAUTIONS ARE IN PLACE WITH CALL LIGHT IN REACH
[2023-01-06 04:34] VITALS: BP 121/91
[2023-01-06 04:56] LABS: IMMATURE GRANULOCYTES 0.3 % (0.0-5.0); LYMPH% 31.1 % (15-41); MEAN CORPUSCULAR HGB 27.5 pG CALC (26.0-32.0); MEAN CORPUSCULAR HGB CONC 31.6 g/dL CAL (32.0-36.0); MONO% 9.1 % (2-13); NEUT# 2.05 thou/uL (1.82-7.42); NEUT% 53.5 % (42-76); RED BLOOD COUNT 4.37 mill/uL (4.70-6.10); RED CELL DISTRI WIDTH 14.6 % (11.5-15.5)
[2023-01-06 05:07] LABS: ALBUMIN 3.4 g/dL (3.2-5.0); ALKALINE PHOSPHATASE 46 u/l (38-126); ANION GAP 8 (6-22 (CALC)); BUN 9 mg/dL (9-20); BUN/CREATININE RATIO 9 (12-20 (CALC)); CARBON DIOXIDE 28 mmol/l (22-30); CHLORIDE 109 mmol/l (95-108); CREATININE 1.1 mg/dL (0.7-1.3); GFR FOR AFR.AMER. > 60 ML/MIN (>=60 (CALC)); GFR OTHER RACES > 60 ML/MIN (>=60 (CALC)); POTASSIUM 4.1 mmol/l (3.5-5.1); SGOT/AST 32 u/l (17-59); SODIUM 141 mmol/l (137-146); TOTAL PROTEIN 5.9 g/dL (6.3-8.2)
[2023-01-06 05:17] LABS: BILIRUBIN, TOTAL 0.2 mg/dL (0.2-1.3)
[2023-01-06 06:42] VITALS: BP 140/93
--- NOTE | 2023-01-06 07:56 | NUR ---
REPORT RECEIVED FROM SCOTTIE OSEI
--- NOTE | 2023-01-06 08:10 | NUR ---
PT RESTING IN SEMI FOWLERS POSITION,A&O X3;RESPIRATIONS EVEN AND UNLABORED ON RA;PT REPORTS ABDOMINAL PAIN AT THIS TIME, PAIN MEDICATION SCHEDULE DISCUSSED;PT REPORTS ANXIETY AND REQUESTS PRN XANAX WHICH IS ADMINISTERED AT THIS TIME;RESPIRATIONS EVEN AND UNLABORED ON RA,CLEAR LUNG SOUNDS;ABDOMEN SOFT ON PALPATION AND ACTIVE IN ALL 4 QUADRANTS;STRONG PEDAL PULSES;SKIN INTACT;#20G TO RFA INFUSING NS @ 100ML/HR,SITE APPEARS HEALTHY;PT DENIES ANY ADDITIONAL NEEDS AND IS ENCOURAGED TO CALL FOR ASSISTANCE IF NEEDED;CALL LIGHT IN REACH;WILL CONTINUE TO MONITOR
--- NOTE | 2023-01-06 09:20 | NUR ---
PT MEDICATED WITH PRN LORTAB 5/325MG PO PER REQUEST.
--- NOTE | 2023-01-06 11:45 | NUR ---
PT RESTING IN SEMI FOWLERS POSITION;RESPIRATIONS EVEN AND UNLABORED ON RA;PT DENIES ANY CURRENT PAIN OR NEEDS;IV SITE PATENT AND ABX STARTED AT THIS TIME;PT EDUCATED ON PLANS TO D/C HOME AND VERBALIZES UNDERSTANDING;ENCOURAGED TO CALL FOR ASSISTANCE IF NEEDED;CALL LIGHT IN REACH;FREQUENT ROUNDS MADE.
[2023-01-06] MEDS ORDERED: CIPROFLOXACN500 MG PO (12:12)
[2023-01-06] MEDS ORDERED: METRONIDAZOLE500 MG PO (12:13)
[2023-01-06] MEDS ORDERED: LORTAB 5/3255 MG PO (12:14)
--- NOTE | 2023-01-06 14:00 | NUR ---
PT MEDICATED WITH PRN LORTAB 5/325MG PO PER REQUEST FOR ABDOMINAL PAIN. ALL DISCHARGE INSTRUCTIONS PROVIDED AT THIS TIME;PT INSTRUCTED TO TAKE ABX DIRECTED. F/U WITH , TAKE PAIN MEDICATION NEEDED FOR SEVERE PAIN.PT VERBALIZES UNDERSTANDING AND DENIES ANY ADDITIONAL NEEDS;PERSONAL BELONGINGS OF A SERVER SECURITY ADMINISTRATOR AND [employer]IG[employer]ILLOS PROVIDED BACK TO PT FOR D/C HOME;IV SITE REMOVED WITH CATHETER INTACT;FAMILY TO TRANSPORT PT HOME;FREQUENT ROUNDS MADE.
--- NOTE | 2023-01-06 14:08 | NUR ---
Discharge instructions given. Patient verbalizes understanding of same. Discharged in stable condition via Wheelchair to Home with family. All belongings sent with pt. PT TRANSPORTED TO [facility] VIA ACCOMPANIED BY [employer];ALL BELONGINGS LEFT WITH PT AT THIS TIME.
== END 2023-01-06 14:08 | disposition home or self-care (01) | DRG 392 ==
LOC: ED 18:42 → ED-I 20:31 → ED 23:13 → MS2 23:14
PROVIDERS: Family Medicine; Nurse Practitioner Family; ADMIT Internal Medicine; ATTEND Internal Medicine
PROC: 0DJD8ZZ Inspection of Lower Intestinal Tract, Via Natural or Artificial Opening Endoscopic (ICD-10-PCS; principal; 2023-01-05)
DX: K57.32 Diverticulitis of large intestine without perforation or abscess without bleeding (principal); I10 Essential (primary) hypertension; F31.9 Bipolar disorder, unspecified; F41.9 Anxiety disorder, unspecified; K64.8 Other hemorrhoids; K21.9 Gastro-esophageal reflux disease without esophagitis; F10.10 Alcohol abuse, uncomplicated; F17.200 Nicotine dependence, unspecified, uncomplicated; F15.10 Other stimulant abuse, uncomplicated; Z87.442 Personal history of urinary calculi
CPT/HCPCS: Q9967

== ENCOUNTER 2023-01-28 15:17 | Emergency (ER) | payer SELFPAY ==
[~2023-01-28] VITALS: Ht 185.4 cm; Wt 136.1 kg
[2023-01-28 15:47] VITALS: BP 136/111
[2023-01-28 16:01] VITALS: BP 144/83
[2023-01-28 16:09] LABS: BASO% 0.6 % (0-3); EOS% 2.6 % (0-8); IMMATURE GRANULOCYTES 0.5 % (0.0-5.0); LYMPH% 19.4 % (15-41); MEAN CELL VOLUME 85.9 fL CALC (80.0-100.0); MEAN CORPUSCULAR HGB 27.4 pG CALC (26.0-32.0); MEAN CORPUSCULAR HGB CONC 31.9 g/dL CAL (32.0-36.0); MONO% 10.1 % (2-13); NEUT# 4.36 thou/uL (1.82-7.42); NEUT% 66.8 % (42-76); RED BLOOD COUNT 5.4 mill/uL (4.70-6.10); RED CELL DISTRI WIDTH 14.3 % (11.5-15.5)
[2023-01-28 16:11] LABS: HEMATOCRIT 46.4 % (39.0-50.0); HEMOGLOBIN 14.8 g/dl (14.0-18.0)
[2023-01-28 16:28] LABS: ANION GAP 14 (6-22 (CALC)); BUN 14 mg/dL (9-20); BUN/CREATININE RATIO 14 (12-20 (CALC)); CARBON DIOXIDE 27 mmol/l (22-30); CHLORIDE 105 mmol/l (95-108); GFR FOR AFR.AMER. > 60 ML/MIN (>=60 (CALC)); GFR OTHER RACES > 60 ML/MIN (>=60 (CALC)); LIPASE 125 u/l (23-300); POTASSIUM 4.5 mmol/l (3.5-5.1); SGOT/AST 33 u/l (17-59); SODIUM 142 mmol/l (137-146)
[2023-01-28 16:33] LABS: ALBUMIN 4.6 g/dL (3.2-5.0); ALKALINE PHOSPHATASE 74 u/l (38-126); BILIRUBIN, TOTAL 0.4 mg/dL (0.2-1.3); TOTAL PROTEIN 7.9 g/dL (6.3-8.2)
[2023-01-28] MEDS ORDERED: HYDROCO/APAP1 TA9 PO (16:49)
[2023-01-28] MEDS ORDERED: AMOX/K CLAV875 M1 PO (16:49)
[2023-01-28] MEDS ORDERED: ZOFRAN4 MG/TAB PO (16:49)
[2023-01-28 17:07] VITALS: BP 127/91
[2023-01-28 17:43] VITALS: BP 127/91
== END 2023-01-28 17:12 | disposition home or self-care (01) | DRG 392 ==
LOC: ED 15:17
PROVIDERS: Family Medicine
DX: K57.92 Diverticulitis of intestine, part unspecified, without perforation or abscess without bleeding (principal); Z20.822 Contact with and (suspected) exposure to COVID-19; I10 Essential (primary) hypertension; K21.9 Gastro-esophageal reflux disease without esophagitis; F31.9 Bipolar disorder, unspecified

== ENCOUNTER 2023-02-04 18:19 | Emergency (ER) | payer SELFPAY ==
[2023-02-04] VITALS (11 sets, daily range): BP systolic 123–189; BP diastolic 85–125
[~2023-02-04] VITALS: Ht 185.4 cm; Wt 136.0 kg
[2023-02-04 19:04] LABS: BASO% 0.7 % (0-3); EOS% 2.5 % (0-8); HEMATOCRIT 46.1 % (39.0-50.0); HEMOGLOBIN 14.9 g/dl (14.0-18.0); IMMATURE GRANULOCYTES 0.5 % (0.0-5.0); LYMPH% 27.8 % (15-41); MEAN CELL VOLUME 84.3 fL CALC (80.0-100.0); MEAN CORPUSCULAR HGB 27.2 pG CALC (26.0-32.0); MEAN CORPUSCULAR HGB CONC 32.3 g/dL CAL (32.0-36.0); MONO% 10.5 % (2-13); NEUT# 3.42 thou/uL (1.82-7.42); RED BLOOD COUNT 5.47 mill/uL (4.70-6.10); RED CELL DISTRI WIDTH 14.4 % (11.5-15.5)
[2023-02-04 19:19] LABS: ALBUMIN 4.5 g/dL (3.2-5.0); ALKALINE PHOSPHATASE 72 u/l (38-126); AMYLASE 66 u/l (30-110); ANION GAP 10 (6-22 (CALC)); BILIRUBIN, TOTAL 0.3 mg/dL (0.2-1.3); BUN 16 mg/dL (9-20); BUN/CREATININE RATIO 15 (12-20 (CALC)); CARBON DIOXIDE 30 mmol/l (22-30); CHLORIDE 105 mmol/l (95-108); CREATININE 1.1 mg/dL (0.7-1.3); GFR FOR AFR.AMER. > 60 ML/MIN (>=60 (CALC)); GFR OTHER RACES > 60 ML/MIN (>=60 (CALC)); LIPASE 116 u/l (23-300); POTASSIUM 4.4 mmol/l (3.5-5.1); SGOT/AST 34 u/l (17-59); SODIUM 141 mmol/l (137-146); TOTAL PROTEIN 7.4 g/dL (6.3-8.2)
[2023-02-04 21:34] LABS: URINE BILIRUBIN - DIPSTICK NEGATIVE (NEGATIVE); URINE BLOOD DIPSTICK NEGATIVE (NEGATIVE); URINE COLOR YELLOW; URINE GLUCOSE - DIPSTICK NEGATIVE (NEGATIVE); URINE KETONE NEGATIVE (NEGATIVE); URINE LEUK ESTERASE NEGATIVE (NEGATIVE); URINE PROTEIN - DIPSTICK NEGATIVE (NEG-TRACE); URINE SPECIFIC GRAVITY >=1.030; URINE UROBILINOGEN - DIPSTICK 0.2 E.U./dL (0.2)
[2023-02-04 21:37] LABS: URINE NITRITE - DIPSTICK NEGATIVE (Negative)
[2023-02-04] MEDS ORDERED: LORTAB 1010 MG PO (22:22)
[2023-02-04] MEDS ORDERED: CIPROFLOXACN500 MG PO (22:22)
[2023-02-04] MEDS ORDERED: METRONIDAZOLE500 MG PO (22:22)
--- NOTE | 2023-02-07 10:56 | NUR ---
PRELIMINARY BC SHOWS GRAM POSITIVE COCCI IN 1/[address] RESULTS REPORT[address] TO [address] MARTINEZ. NO NEW ORDERS. WILL FOLLOW UP WHEN FINAL RESULTS AVAILABLE.
== END 2023-02-04 22:50 | disposition home or self-care (01) | DRG 392 ==
LOC: ED 18:19
PROVIDERS: Emergency Medicine
DX: K57.92 Diverticulitis of intestine, part unspecified, without perforation or abscess without bleeding (principal); R10.9 Unspecified abdominal pain; K21.9 Gastro-esophageal reflux disease without esophagitis; I10 Essential (primary) hypertension; F41.8 Other specified anxiety disorders; F17.200 Nicotine dependence, unspecified, uncomplicated
CPT/HCPCS: Q9967

== ENCOUNTER 2023-02-06 07:39 | Inpatient (IN) | payer SELFPAY ==
[~2023-02-06] VITALS: Ht 185.4 cm; Wt 136.1 kg
[~2023-02-06 07:39] MED LIST changes: +LORTAB 1010 MG PO
[2023-02-08] VITALS (8 sets, daily range): BP systolic 133–157; BP diastolic 87–94
[2023-02-09 03:46] VITALS: BP 144/91
[2023-02-09 05:45] LABS: BASO% 0.1 % (0-3); HEMOGLOBIN 13.3 g/dl (14.0-18.0); IMMATURE GRANULOCYTES 0.3 % (0.0-5.0); LYMPH% 4.2 % (15-41); MEAN CORPUSCULAR HGB 27.5 pG CALC (26.0-32.0); MEAN CORPUSCULAR HGB CONC 30.9 g/dL CAL (32.0-36.0); MONO% 6.8 % (2-13); NEUT# 14.65 thou/uL (1.82-7.42); NEUT% 88.6 % (42-76); RED BLOOD COUNT 4.83 mill/uL (4.70-6.10); RED CELL DISTRI WIDTH 15.1 % (11.5-15.5)
[2023-02-09 06:14] LABS: ALBUMIN 4.4 g/dL (3.2-5.0); ALKALINE PHOSPHATASE 57 u/l (38-126); ANION GAP 16 (6-22 (CALC)); BILIRUBIN, TOTAL 0.8 mg/dL (0.2-1.3); BUN 12 mg/dL (9-20); BUN/CREATININE RATIO 13 (12-20 (CALC)); CARBON DIOXIDE 24 mmol/l (22-30); CHLORIDE 102 mmol/l (95-108); CREATININE 0.9 mg/dL (0.7-1.3); GFR FOR AFR.AMER. > 60 ML/MIN (>=60 (CALC)); GFR OTHER RACES > 60 ML/MIN (>=60 (CALC)); POTASSIUM 4.4 mmol/l (3.5-5.1); SGOT/AST 40 u/l (17-59); SODIUM 137 mmol/l (137-146); TOTAL PROTEIN 7.1 g/dL (6.3-8.2)
[2023-02-09 06:45] VITALS: BP 129/94
[2023-02-09 15:52] VITALS: BP 173/113
[2023-02-09 15:53] VITALS: BP 153/105
[2023-02-09 19:00] VITALS: BP 150/115
[2023-02-09 19:06] VITALS: BP 150/115
[2023-02-10 04:00] VITALS: BP 145/84
[2023-02-10 05:06] VITALS: BP 145/84
[2023-02-10 06:30] VITALS: BP 146/83
[2023-02-10 15:18] VITALS: BP 136/83
[2023-02-11 03:40] VITALS: BP 140/96
[2023-02-11 04:00] VITALS: BP 140/96
[2023-02-11 05:14] LABS: BASO% 0.5 % (0-3); EOS% 3.1 % (0-8); IMMATURE GRANULOCYTES 0.5 % (0.0-5.0); LYMPH% 19.6 % (15-41); MEAN CELL VOLUME 86.9 fL CALC (80.0-100.0); MEAN CORPUSCULAR HGB 27.9 pG CALC (26.0-32.0); MEAN CORPUSCULAR HGB CONC 32.1 g/dL CAL (32.0-36.0); MONO% 13.4 % (2-13); NEUT# 4.09 thou/uL (1.82-7.42); NEUT% 62.9 % (42-76); RED BLOOD COUNT 3.98 mill/uL (4.70-6.10); RED CELL DISTRI WIDTH 15.1 % (11.5-15.5)
[2023-02-11 05:47] LABS: HEMATOCRIT 34.6 % (39.0-50.0); HEMOGLOBIN 11.1 g/dl (14.0-18.0)
[2023-02-11 05:51] LABS: ANION GAP 7 (6-22 (CALC)); BUN 10 mg/dL (9-20); BUN/CREATININE RATIO 12 (12-20 (CALC)); CHLORIDE 103 mmol/l (95-108); CREATININE 0.8 mg/dL (0.7-1.3); GFR FOR AFR.AMER. > 60 ML/MIN (>=60 (CALC)); GFR OTHER RACES > 60 ML/MIN (>=60 (CALC)); POTASSIUM 3.6 mmol/l (3.5-5.1); SODIUM 137 mmol/l (137-146)
[2023-02-11 05:52] LABS: CARBON DIOXIDE 31 mmol/l (22-30)
[2023-02-11 06:55] VITALS: BP 149/94
[2023-02-11 15:53] VITALS: BP 153/86
[2023-02-11 19:00] VITALS: BP 155/92
[2023-02-12 04:34] VITALS: BP 147/86
[2023-02-12 06:34] VITALS: BP 140/82
[2023-02-12] MEDS ORDERED: PERCOCET 10/31 COMBO PO (12:49)
== END 2023-02-12 13:49 | disposition home or self-care (01) | DRG 331 ==
LOC: MS2 02-08 07:29 → OR 02-08 08:00 → MS2 02-12 13:49
PROVIDERS: ADMIT Surgery; ATTEND Surgery
PROC: 0DBN0ZZ Excision of Sigmoid Colon, Open Approach (ICD-10-PCS; principal; 2023-02-08)
DX: K57.32 Diverticulitis of large intestine without perforation or abscess without bleeding (principal); F31.9 Bipolar disorder, unspecified; F41.9 Anxiety disorder, unspecified; F17.290 Nicotine dependence, other tobacco product, uncomplicated; E66.9 Obesity, unspecified
CPT/HCPCS: J0131; J1100; J1650; J2710

== ENCOUNTER 2023-02-18 09:59 | Emergency (ER) | payer SELFPAY ==
[~2023-02-18] VITALS: Ht 185.4 cm; Wt 136.0 kg
[2023-02-18 10:08] VITALS: BP 188/104
[2023-02-18 10:54] VITALS: BP 180/114
[2023-02-18 11:01] VITALS: BP 177/127
[2023-02-18 11:08] VITALS: BP 168/98
== END 2023-02-18 11:17 | disposition home or self-care (01) | DRG 948 ==
LOC: ED 09:59
DX: G89.18 Other acute postprocedural pain (principal); I10 Essential (primary) hypertension; F31.9 Bipolar disorder, unspecified; F41.9 Anxiety disorder, unspecified; K21.9 Gastro-esophageal reflux disease without esophagitis; F17.200 Nicotine dependence, unspecified, uncomplicated; Z90.49 Acquired absence of other specified parts of digestive tract; Z87.19 Personal history of other diseases of the digestive system

== ENCOUNTER 2023-02-19 12:23 | Inpatient (IN) | payer SELFPAY ==
[2023-02-19 13:00] VITALS: BP 144/97
[2023-02-19 15:25] VITALS: BP 162/98
[2023-02-19 19:41] VITALS: BP 139/83
[2023-02-20] VITALS (12 sets, daily range): BP systolic 93–146; BP diastolic 67–81
[2023-02-20 05:39] LABS: BASO% 0.7 % (0-3); EOS% 4.9 % (0-8); HEMATOCRIT 37.1 % (39.0-50.0); HEMOGLOBIN 11.7 g/dl (14.0-18.0); IMMATURE GRANULOCYTES 2.1 % (0.0-5.0); LYMPH% 20.9 % (15-41); MEAN CELL VOLUME 86.3 fL CALC (80.0-100.0); MEAN CORPUSCULAR HGB 27.2 pG CALC (26.0-32.0); MEAN CORPUSCULAR HGB CONC 31.5 g/dL CAL (32.0-36.0); MONO% 7.2 % (2-13); NEUT# 4.57 thou/uL (1.82-7.42); NEUT% 64.2 % (42-76); RED BLOOD COUNT 4.3 mill/uL (4.70-6.10); RED CELL DISTRI WIDTH 15.2 % (11.5-15.5)
[2023-02-20 05:56] LABS: ALBUMIN 3.7 g/dL (3.2-5.0); ALKALINE PHOSPHATASE 57 u/l (38-126); ANION GAP 9 (6-22 (CALC)); BUN 16 mg/dL (9-20); BUN/CREATININE RATIO 13 (12-20 (CALC)); CARBON DIOXIDE 28 mmol/l (22-30); CHLORIDE 105 mmol/l (95-108); CREATININE 1.2 mg/dL (0.7-1.3); GFR FOR AFR.AMER. > 60 ML/MIN (>=60 (CALC)); GFR OTHER RACES > 60 ML/MIN (>=60 (CALC)); POTASSIUM 4.3 mmol/l (3.5-5.1); SGOT/AST 26 u/l (17-59); SODIUM 137 mmol/l (137-146); TOTAL PROTEIN 6.7 g/dL (6.3-8.2)
[2023-02-20 06:10] LABS: BILIRUBIN, TOTAL 0.2 mg/dL (0.2-1.3)
[2023-02-21 06:59] VITALS: BP 136/97
[2023-02-21 15:26] VITALS: BP 144/77
[2023-02-21 18:51] VITALS: BP 186/81
[2023-02-21 22:05] VITALS: BP 147/76
[2023-02-22 04:01] VITALS: BP 169/97
[2023-02-22 07:36] VITALS: BP 149/85
[2023-02-22] MEDS ORDERED: PERCOCET 10/31 COMBO PO (09:01)
[2023-02-22 10:51] VITALS: BP 163/80
== END 2023-02-22 12:13 | disposition home or self-care (01) | DRG 858 ==
LOC: MS2 12:23
PROVIDERS: ADMIT Surgery; ATTEND Surgery
PROC: 0JD80ZZ Extraction of Abdomen Subcutaneous Tissue and Fascia, Open Approach (ICD-10-PCS; principal; 2023-02-20)
PROC: 2W13X6Z Compression of Abdominal Wall using Pressure Dressing (ICD-10-PCS; 2023-02-20)
DX: T81.41XA Infection following a procedure, superficial incisional surgical site, initial encounter (principal); F31.9 Bipolar disorder, unspecified; F41.9 Anxiety disorder, unspecified; E66.9 Obesity, unspecified; F17.200 Nicotine dependence, unspecified, uncomplicated; Y83.6 Removal of other organ (partial) (total) as the cause of abnormal reaction of the patient, or of later complication, without mention of misadventure at the time of the procedure; Z90.49 Acquired absence of other specified parts of digestive tract
CPT/HCPCS: J0131; S0164

== ENCOUNTER 2023-03-02 14:30 | Emergency (ER) | payer SELFPAY ==
[~2023-03-02] VITALS: Ht 185.4 cm; Wt 136.1 kg
[2023-03-02 15:09] VITALS: BP 149/89
[2023-03-02 15:27] LABS: BASO% 0.5 % (0-3); EOS% 1.8 % (0-8); HEMATOCRIT 39.4 % (39.0-50.0); HEMOGLOBIN 12.9 g/dl (14.0-18.0); IMMATURE GRANULOCYTES 0.8 % (0.0-5.0); MEAN CELL VOLUME 82.8 fL CALC (80.0-100.0); MEAN CORPUSCULAR HGB 27.1 pG CALC (26.0-32.0); MEAN CORPUSCULAR HGB CONC 32.7 g/dL CAL (32.0-36.0); NEUT# 6.71 thou/uL (1.82-7.42); NEUT% 72.9 % (42-76); RED BLOOD COUNT 4.76 mill/uL (4.70-6.10); RED CELL DISTRI WIDTH 14.2 % (11.5-15.5)
[2023-03-02 15:31] VITALS: BP 146/88
[2023-03-02 15:49] LABS: ALBUMIN 4.2 g/dL (3.2-5.0); ALKALINE PHOSPHATASE 73 u/l (38-126); ANION GAP 13 (6-22 (CALC)); BILIRUBIN, TOTAL 0.2 mg/dL (0.2-1.3); BUN 14 mg/dL (9-20); BUN/CREATININE RATIO 16 (12-20 (CALC)); CARBON DIOXIDE 28 mmol/l (22-30); CHLORIDE 104 mmol/l (95-108); CREATININE 0.9 mg/dL (0.7-1.3); GFR FOR AFR.AMER. > 60 ML/MIN (>=60 (CALC)); GFR OTHER RACES > 60 ML/MIN (>=60 (CALC)); POTASSIUM 4.3 mmol/l (3.5-5.1); SGOT/AST 26 u/l (17-59); SODIUM 140 mmol/l (137-146)
[2023-03-02] MEDS ORDERED: TAMSULOSIN0.4 MG PO (16:51)
[2023-03-02] MEDS ORDERED: NAPROXEN500 MG PO (16:51)
[2023-03-02 17:04] VITALS: BP 146/88
== END 2023-03-02 17:07 | disposition home or self-care (01) | DRG 392 ==
LOC: ED 14:30
PROVIDERS: Family Medicine
DX: R10.9 Unspecified abdominal pain (principal); F19.10 Other psychoactive substance abuse, uncomplicated; Z76.5 Malingerer [conscious simulation]; F31.9 Bipolar disorder, unspecified; F41.9 Anxiety disorder, unspecified; F17.200 Nicotine dependence, unspecified, uncomplicated; Z87.442 Personal history of urinary calculi; Z90.49 Acquired absence of other specified parts of digestive tract; Z87.19 Personal history of other diseases of the digestive system

== ENCOUNTER 2023-06-11 22:36 | Emergency (ER) | payer SELFPAY ==
[~2023-06-11] VITALS: Ht 182.9 cm; Wt 140.0 kg
[~2023-06-11 22:36] MED LIST changes: +NAPROXEN500 MG PO; +TAMSULOSIN0.4 MG PO
[2023-06-11 22:49] VITALS: BP 193/107
[2023-06-11 23:01] VITALS: BP 163/96
[2023-06-11] MEDS ORDERED: VISTARIL50 MG PO (23:18)
[2023-06-11] MEDS ORDERED: TRAZODONE100 MG PO (23:18)
[2023-06-11 23:30] VITALS: BP 165/94
[2023-06-11 23:43] LABS: BASO% 0.5 % (0-3); EOS% 1.1 % (0-8); HEMOGLOBIN 13.6 g/dl (14.0-18.0); IMMATURE GRANULOCYTES 0.8 % (0.0-5.0); LYMPH% 21.5 % (15-41); MEAN CELL VOLUME 78.8 fL CALC (80.0-100.0); MEAN CORPUSCULAR HGB 24.9 pG CALC (26.0-32.0); MEAN CORPUSCULAR HGB CONC 31.6 g/dL CAL (32.0-36.0); MONO% 10.7 % (2-13); NEUT# 4.37 thou/uL (1.82-7.42); NEUT% 65.4 % (42-76); RED BLOOD COUNT 5.46 mill/uL (4.70-6.10); RED CELL DISTRI WIDTH 14.3 % (11.5-15.5)
[2023-06-12 00:01] VITALS: BP 177/99
[2023-06-12 00:03] LABS: ALBUMIN 4.4 g/dL (3.2-5.0); ALKALINE PHOSPHATASE 80 u/l (38-126); AMYLASE 98 u/l (30-110); ANION GAP 13 (6-22 (CALC)); BUN 21 mg/dL (9-20); BUN/CREATININE RATIO 17 (12-20 (CALC)); CARBON DIOXIDE 24 mmol/l (22-30); CHLORIDE 103 mmol/l (95-108); CREATININE 1.2 mg/dL (0.7-1.3); ETHYL ALCOHOL 51 mg/dl (0-30); GFR FOR AFR.AMER. > 60 ML/MIN (>=60 (CALC)); GFR OTHER RACES > 60 ML/MIN (>=60 (CALC)); LIPASE 212 u/l (23-300); SODIUM 137 mmol/l (137-146); TOTAL PROTEIN 7.9 g/dL (6.3-8.2)
[2023-06-12 00:08] LABS: BILIRUBIN, TOTAL 0.8 mg/dL (0.2-1.3); SGOT/AST 219 u/l (17-59)
[2023-06-12 01:01] VITALS: BP 138/82
[2023-06-12 01:21] LABS: URINE BILIRUBIN - DIPSTICK NEGATIVE (NEGATIVE); URINE COLOR YELLOW; URINE GLUCOSE - DIPSTICK NEGATIVE (NEGATIVE); URINE KETONE Negative (NEGATIVE); URINE PROTEIN - DIPSTICK NEGATIVE (NEG-TRACE); URINE SPECIFIC GRAVITY 1.015
[2023-06-12 01:22] LABS: URINE BLOOD DIPSTICK NEGATIVE (NEGATIVE); URINE LEUK ESTERASE NEGATIVE (NEGATIVE); URINE NITRITE - DIPSTICK NEGATIVE (Negative); URINE UROBILINOGEN - DIPSTICK 0.2 E.U./dL (0.2)
[2023-06-12 01:31] VITALS: BP 140/68
[2023-06-12 02:01] VITALS: BP 150/84
[2023-06-12] MEDS ORDERED: ONDANSETRON4 MG PO (02:15)
[2023-06-12] MEDS ORDERED: LORTAB 1010 MG PO (02:15)
[2023-06-12 02:30] VITALS: BP 148/111
[2023-06-12 02:55] VITALS: BP 148/111
== END 2023-06-12 02:55 | disposition home or self-care (01) | DRG 392 ==
LOC: ED 22:36
PROVIDERS: Emergency Medicine
DX: R10.13 Epigastric pain (principal); F10.10 Alcohol abuse, uncomplicated; I10 Essential (primary) hypertension; F31.9 Bipolar disorder, unspecified; K21.9 Gastro-esophageal reflux disease without esophagitis; F17.200 Nicotine dependence, unspecified, uncomplicated; Y90.2 Blood alcohol level of 40-59 mg/100 ml; Z20.822 Contact with and (suspected) exposure to COVID-19
CPT/HCPCS: Q9967; S0164

== ENCOUNTER 2024-07-03 09:01 | Inpatient (IN) | payer OTHER ==
[~2024-07-03] VITALS: Ht 182.9 cm; Wt 182.9 kg
[2024-07-03] VITALS (27 sets, daily range): BP systolic 109–177; BP diastolic 59–147
[~2024-07-03 09:01] MED LIST changes: +MIDAZOLAM HCL 2 MG/2 ML VIAL IV ONE; +PROPOFOL 200 MG/20 ML VIAL IV ONE; +VISTARIL50 MG PO
[2024-07-03] MEDS ORDERED: SODIUM CHLORIDE 0.9% 1,000 ML IV ONE ×2 (09:25→11:30)
[2024-07-03] MEDS ORDERED: ACETAMINOPHEN 1,000 MG/100 ML VIAL IV ONE (09:25)
[2024-07-03] MEDS ORDERED: VANCOMYCIN HCL 1 GM in SODIUM CHLORIDE 0.9% 250 ML IV ONE (09:25)
[2024-07-03] MEDS ORDERED: PIPERACILLIN Sodium-Tazobactam 3.375 GM in SODIUM CHLORIDE 0.9% 100 ML IV ONE (09:25)
[2024-07-03] MEDS ORDERED: SUBOXONE1 MI1 PO (09:45)
[2024-07-03 10:01] LABS: BASO% 0.1 % (0-3); EOS% 0.4 % (0-8); IMMATURE GRANULOCYTES 1.2 % (0.0-5.0); LYMPH% 2.8 % (15-41); MEAN CORPUSCULAR HGB 28.3 pG CALC (26.0-32.0); MEAN CORPUSCULAR HGB CONC 32.2 g/dL CAL (32.0-36.0); MONO% 6.9 % (2-13); NEUT# 12.17 thou/uL (1.82-7.42); NEUT% 88.6 % (42-76); RED BLOOD COUNT 3.78 mill/uL (4.70-6.10); RED CELL DISTRI WIDTH 13.4 % (11.5-15.5)
[2024-07-03 10:04] LABS: HEMATOCRIT 33.2 % (39.0-50.0); HEMOGLOBIN 10.7 g/dl (14.0-18.0); MEAN CELL VOLUME 87.8 fL CALC (80.0-100.0)
[2024-07-03 10:16] LABS: ALBUMIN 3.6 g/dL (3.2-5.0); CREATININE 0.8 mg/dL (0.7-1.3); POTASSIUM 3.7 mmol/l (3.5-5.1); TOTAL PROTEIN 6.4 g/dL (6.3-8.2)
[2024-07-03 11:25] LABS: URINE BILIRUBIN - DIPSTICK Negative (NEGATIVE); URINE BLOOD DIPSTICK Negative (NEGATIVE); URINE GLUCOSE - DIPSTICK Negative (NEGATIVE); URINE KETONE Negative (NEGATIVE); URINE LEUK ESTERASE Negative (NEGATIVE); URINE NITRITE - DIPSTICK Negative (Negative); URINE PROTEIN - DIPSTICK Negative (NEG-TRACE); URINE SPECIFIC GRAVITY <=1.005
[2024-07-03] MEDS ORDERED: CLINDAMYCIN PHOSPHATE 50 ML IV ONE (11:25)
[2024-07-03 11:29] LABS: URINE COLOR Yellow
[2024-07-03] MEDS ORDERED: MIDAZOLAM HCL 2 MG/2 ML VIAL IV ONE (12:25)
[2024-07-03] MEDS ORDERED: LACTATED RINGER'S 1,000 ML IV ONE (13:06)
[2024-07-03] MEDS ORDERED: FAMOTIDINE 10MG/ML 2ML SDV IV ONE (13:06)
[2024-07-03] MEDS ORDERED: LIDOCAINE HCL 1% (10MG/ML) 100 MG/10 ML MDV ONE (13:20)
[2024-07-03] MEDS ORDERED: oxyCODONE 5MG/ ACETAMINOPHEN 325MG TAB PO PRN (14:00)
[2024-07-03] MEDS ORDERED: LABETALOL HCL 20 MG/ 4 ML CARTRG IV PRN (14:00)
[2024-07-03] MEDS ORDERED: HYDROmorphone HCL 2 MG/AMP IV PRN (14:00)
[2024-07-03] MEDS ORDERED: ONDANSETRON HCl 4 MG/2 ML SDV IV PRN (14:00)
[2024-07-03] MEDS ORDERED: DEXTROSE 5% w/NACL 0.45 1,000 ML IV PRN (14:00)
[2024-07-03] MEDS ORDERED: SIMETHICONE 20 MG/0.3 ML PO PRN (14:00)
[2024-07-03] MEDS ORDERED: HYDROmorphone HCL 2 MG/AMP ONE ×2 (14:27→14:36)
[2024-07-03] MEDS ORDERED: ACETAMINOPHEN 100 ML IV ONE (14:28)
[2024-07-03] MEDS ORDERED: PIPERACILLIN Sodium-Tazobactam 3.375 GM in SODIUM CHLORIDE 0.9% 100 ML IV SCH (18:00)
[2024-07-04] VITALS (15 sets, daily range): BP systolic 118–139; BP diastolic 60–83
[2024-07-04 05:48] LABS: BASO% 0.1 % (0-3); EOS% 0.8 % (0-8); HEMOGLOBIN 9.4 g/dl (14.0-18.0); IMMATURE GRANULOCYTES 0.8 % (0.0-5.0); LYMPH% 5.9 % (15-41); MEAN CORPUSCULAR HGB 28.8 pG CALC (26.0-32.0); MEAN CORPUSCULAR HGB CONC 32.4 g/dL CAL (32.0-36.0); MONO% 7.5 % (2-13); NEUT# 13.02 thou/uL (1.82-7.42); NEUT% 84.9 % (42-76); RED BLOOD COUNT 3.26 mill/uL (4.70-6.10); RED CELL DISTRI WIDTH 13.7 % (11.5-15.5)
[2024-07-04 06:05] LABS: ALBUMIN 3.1 g/dL (3.2-5.0); CREATININE 0.8 mg/dL (0.7-1.3); POTASSIUM 3.7 mmol/l (3.5-5.1); TOTAL PROTEIN 5.7 g/dL (6.3-8.2)
[2024-07-04 06:09] LABS: BILIRUBIN, TOTAL 0.5 mg/dL (0.2-1.3)
[2024-07-04] MEDS ORDERED: LIDOCAINE HCL 1% (10MG/ML) 100 MG/10 ML MDV ONE ×3 (07:13→10:57)
[2024-07-04] MEDS ORDERED: KETAMINE HCL 50 MG/ML 10 ML VIAL IV ONE (08:30)
[2024-07-04] MEDS ORDERED: MIDAZOLAM HCL 2 MG/2 ML VIAL IV ONE (08:30)
[2024-07-04] MEDS ORDERED: PROPOFOL 200 MG/20 ML VIAL IV ONE (08:30)
[2024-07-04] MEDS ORDERED: ACETAMINOPHEN 1,000 MG/100 ML VIAL IV ONE (08:30)
[2024-07-04] MEDS ORDERED: GLYCOPYRROLATE 0.2 MG/ML IV ONE (08:30)
[2024-07-04] MEDS ORDERED: chlordiazePOXIDE HCL 25 MG CAP PO PRN (08:35)
[2024-07-04] MEDS ORDERED: LORazepam 2 MG/ML IV PRN (08:35)
[2024-07-04] MEDS ORDERED: VANCOMYCIN HCL 1,500 MG in SODIUM CHLORIDE 0.9% 470 ML IV SCH (10:00)
[2024-07-04] MEDS ORDERED: MULTIPLE VITAMIN 10 ML,THIAMINE HCL 100 MG in DEXTROSE 5% / 0.9% NACL 1,000 ML IV SCH (10:00)
[2024-07-04] MEDS ORDERED: SODIUM CHLORIDE 0.9% 1,000 ML IV ONE ×3 (10:43→13:36)
[2024-07-04] MEDS ORDERED: STERILE WATER FOR IRRIGATION 1,000 ML BTL IR ONE ×2 (10:43→13:36)
[2024-07-04] MEDS ORDERED: SODIUM CHLORIDE 1,000 ML BTL IR ONE ×2 (10:43→13:36)
[2024-07-04] MEDS ORDERED: FAMOTIDINE 10MG/ML 2ML SDV IV ONE (10:58)
[2024-07-04] MEDS ORDERED: PIPERACILLIN Sodium-Tazobactam 4.5 GM in SODIUM CHLORIDE 0.9% 100 ML IV SCH (12:00)
[2024-07-04] MEDS ORDERED: CLINDAMYCIN PHOSPHATE 50 ML IV SCH (14:00)
[2024-07-04] MEDS ORDERED: NICOTINE TRANSDERMAL 21 MG/PATCH TD PRN (14:30)
[2024-07-04] MEDS ORDERED: Meropenem 1 GM in SODIUM CHLORIDE 0.9% 100 ML IV SCH (17:00)
[2024-07-05] VITALS (8 sets, daily range): BP systolic 145–179; BP diastolic 59–111
[2024-07-05 05:32] LABS: BASO% 0.4 % (0-3); EOS% 1.7 % (0-8); HEMATOCRIT 33.6 % (39.0-50.0); HEMOGLOBIN 10.1 g/dl (14.0-18.0); IMMATURE GRANULOCYTES 0.8 % (0.0-5.0); LYMPH% 11.7 % (15-41); MEAN CELL VOLUME 93.9 fL CALC (80.0-100.0); MEAN CORPUSCULAR HGB 28.2 pG CALC (26.0-32.0); MEAN CORPUSCULAR HGB CONC 30.1 g/dL CAL (32.0-36.0); MONO% 9.2 % (2-13); NEUT# 5.85 thou/uL (1.82-7.42); NEUT% 76.2 % (42-76); RED BLOOD COUNT 3.58 mill/uL (4.70-6.10); RED CELL DISTRI WIDTH 13.9 % (11.5-15.5)
[2024-07-05 06:08] LABS: ALBUMIN 3.2 g/dL (3.2-5.0); BILIRUBIN, TOTAL 0.4 mg/dL (0.2-1.3); CREATININE 0.7 mg/dL (0.7-1.3); MAGNESIUM 1.8 mg/dL (1.6-2.3); POTASSIUM 3.4 mmol/l (3.5-5.1)
[2024-07-05] MEDS ORDERED: MULTIPLE VITAMIN TABLET PO SCH (09:00)
[2024-07-05] MEDS ORDERED: FOLIC ACID 1 MG/TAB PO SCH (09:00)
[2024-07-05] MEDS ORDERED: THIAMINE HCL 100 MG TAB PO SCH (09:00)
[2024-07-05] MEDS ORDERED: HYDROmorphone HCL 2 MG/AMP IV PRN (10:00)
[2024-07-05] MEDS ORDERED: amLODIPine BESYLATE 5 MG/TAB PO SCH (12:00)
[2024-07-06] VITALS (8 sets, daily range): BP systolic 127–175; BP diastolic 70–105
[2024-07-06] MEDS ORDERED: amLODIPine BESYLATE 5 MG/TAB PO SCH (09:00)
[2024-07-06] MEDS ORDERED: LOSARTAN Potassium 25 MG/TAB PO SCH (09:00)
[2024-07-06 10:08] LABS: BASO% 0.6 % (0-3); EOS% 3.4 % (0-8); HEMATOCRIT 29.6 % (39.0-50.0); HEMOGLOBIN 9.5 g/dl (14.0-18.0); LYMPH% 13.5 % (15-41); MEAN CORPUSCULAR HGB CONC 32.1 g/dL CAL (32.0-36.0); MONO% 12.6 % (2-13); NEUT# 2.3 thou/uL (1.82-7.42); NEUT% 64.6 % (42-76); RED BLOOD COUNT 3.39 mill/uL (4.70-6.10); RED CELL DISTRI WIDTH 13.4 % (11.5-15.5)
[2024-07-06 10:11] LABS: MEAN CELL VOLUME 87.3 fL CALC (80.0-100.0)
[2024-07-06 10:12] LABS: ALBUMIN 3.2 g/dL (3.2-5.0); BILIRUBIN, TOTAL 0.3 mg/dL (0.2-1.3); CREATININE 0.7 mg/dL (0.7-1.3); MAGNESIUM 1.9 mg/dL (1.6-2.3); POTASSIUM 3.1 mmol/l (3.5-5.1)
[2024-07-06 10:29] LABS: IMMATURE GRANULOCYTES 5.3 % (0.0-5.0)
[2024-07-06] MEDS ORDERED: oxyCODONE 10MG/APAP 325 MG 1 COMBO TAB PO PRN (13:40)
[2024-07-06] MEDS ORDERED: POTASSIUM CHLORIDE 20 MEQ/TAB PO SCH (14:00)
[2024-07-07] VITALS (7 sets, daily range): BP systolic 116–148; BP diastolic 81–92
[2024-07-07 05:22] LABS: BASO% 0.8 % (0-3); EOS% 5.3 % (0-8); HEMATOCRIT 28.4 % (39.0-50.0); HEMOGLOBIN 9.2 g/dl (14.0-18.0); LYMPH% 18.4 % (15-41); MEAN CELL VOLUME 87.4 fL CALC (80.0-100.0); MEAN CORPUSCULAR HGB 28.3 pG CALC (26.0-32.0); MEAN CORPUSCULAR HGB CONC 32.4 g/dL CAL (32.0-36.0); MONO% 14.9 % (2-13); NEUT# 2.12 thou/uL (1.82-7.42); NEUT% 53.3 % (42-76); RED BLOOD COUNT 3.25 mill/uL (4.70-6.10); RED CELL DISTRI WIDTH 13.5 % (11.5-15.5)
[2024-07-07 05:34] LABS: ALBUMIN 3.1 g/dL (3.2-5.0); BILIRUBIN, TOTAL 0.3 mg/dL (0.2-1.3); CREATININE 0.7 mg/dL (0.7-1.3); MAGNESIUM 1.8 mg/dL (1.6-2.3); POTASSIUM 3.3 mmol/l (3.5-5.1); TOTAL PROTEIN 5.9 g/dL (6.3-8.2)
[2024-07-07 05:36] LABS: IMMATURE GRANULOCYTES 7.3 % (0.0-5.0)
[2024-07-07] MEDS ORDERED: POTASSIUM CHLORIDE 20 MEQ/TAB PO SCH (07:00)
[2024-07-07] MEDS ORDERED: VANCOMYCIN HCL 1,250 MG in SODIUM CHLORIDE 0.9% 225 ML IV SCH (11:00)
[2024-07-08] VITALS (7 sets, daily range): BP systolic 117–159; BP diastolic 56–97
[2024-07-08 05:16] LABS: BASO% 0.7 % (0-3); EOS% 4.9 % (0-8); HEMATOCRIT 30.4 % (39.0-50.0); HEMOGLOBIN 9.8 g/dl (14.0-18.0); LYMPH% 20.6 % (15-41); MEAN CELL VOLUME 87.1 fL CALC (80.0-100.0); MEAN CORPUSCULAR HGB 28.1 pG CALC (26.0-32.0); MEAN CORPUSCULAR HGB CONC 32.2 g/dL CAL (32.0-36.0); MONO% 13.9 % (2-13); NEUT# 2.21 thou/uL (1.82-7.42); NEUT% 51.1 % (42-76); RED BLOOD COUNT 3.49 mill/uL (4.70-6.10); RED CELL DISTRI WIDTH 13.5 % (11.5-15.5)
[2024-07-08 05:32] LABS: IMMATURE GRANULOCYTES 8.8 % (0.0-5.0)
[2024-07-08 05:37] LABS: ALBUMIN 3.2 g/dL (3.2-5.0); BILIRUBIN, TOTAL 0.4 mg/dL (0.2-1.3); CREATININE 0.8 mg/dL (0.7-1.3); MAGNESIUM 2.1 mg/dL (1.6-2.3); POTASSIUM 3.7 mmol/l (3.5-5.1); TOTAL PROTEIN 6.1 g/dL (6.3-8.2)
[2024-07-08] MEDS ORDERED: levoFLOXacin hemihydrate 250 MG/TAB PO SCH (12:00)
[2024-07-08] MEDS ORDERED: VANCOMYCIN HCL 1,250 MG in SODIUM CHLORIDE 0.9% 225 ML IV SCH (14:00)
[2024-07-09 03:53] VITALS: BP 128/82
[2024-07-09 05:16] LABS: BASO% 0.8 % (0-3); EOS% 6.4 % (0-8); HEMATOCRIT 28.8 % (39.0-50.0); HEMOGLOBIN 9.4 g/dl (14.0-18.0); LYMPH% 25.7 % (15-41); MEAN CORPUSCULAR HGB 28.4 pG CALC (26.0-32.0); MEAN CORPUSCULAR HGB CONC 32.6 g/dL CAL (32.0-36.0); MONO% 10.9 % (2-13); NEUT# 1.77 thou/uL (1.82-7.42); NEUT% 49.5 % (42-76); RED BLOOD COUNT 3.31 mill/uL (4.70-6.10); RED CELL DISTRI WIDTH 13.6 % (11.5-15.5)
[2024-07-09 05:41] LABS: IMMATURE GRANULOCYTES 6.7 % (0.0-5.0)
[2024-07-09 05:46] LABS: ALBUMIN 3.3 g/dL (3.2-5.0); CREATININE 0.9 mg/dL (0.7-1.3); MAGNESIUM 2.3 mg/dL (1.6-2.3); TOTAL PROTEIN 6.3 g/dL (6.3-8.2)
[2024-07-09 06:01] LABS: BILIRUBIN, TOTAL 0.2 mg/dL (0.2-1.3)
[2024-07-09 08:03] VITALS: BP 136/88
[2024-07-09] MEDS ORDERED: AMLODIPINE BESYL5 MG PO (10:25)
[2024-07-09] MEDS ORDERED: LEVOFLOXACIN250 M1 PO (10:25)
[2024-07-09] MEDS ORDERED: LOSARTAN POTASS25 MG PO (10:25)
[2024-07-09] MEDS ORDERED: LINEZOLID600 MG PO (10:26)
[2024-07-09 11:14] VITALS: BP 152/85
== END 2024-07-09 12:29 | disposition home or self-care (01) | DRG 717 ==
LOC: ED 09:01 → ED-I 11:19 → MS2 11:54 → ED 11:54 → MS2 13:31
PROVIDERS: Family Medicine; Student in an Organized Health Care Education/Training Program; ADMIT Surgery; ATTEND Surgery
PROC: 0V950ZZ Drainage of Scrotum, Open Approach (ICD-10-PCS; principal; 2024-07-03)
PROC: 0JDB0ZZ Extraction of Perineum Subcutaneous Tissue and Fascia, Open Approach (ICD-10-PCS; 2024-07-03)
PROC: 0J9C0ZZ Drainage of Pelvic Region Subcutaneous Tissue and Fascia, Open Approach (ICD-10-PCS; 2024-07-04)
DX: N49.3 Fournier gangrene (principal); Z68.43 Body mass index [BMI] 50.0-59.9, adult; B95.62 Methicillin resistant Staphylococcus aureus infection as the cause of diseases classified elsewhere; B96.1 Klebsiella pneumoniae [K. pneumoniae] as the cause of diseases classified elsewhere; I10 Essential (primary) hypertension; D64.9 Anemia, unspecified; F31.9 Bipolar disorder, unspecified; F41.9 Anxiety disorder, unspecified; K21.9 Gastro-esophageal reflux disease without esophagitis; F10.10 Alcohol abuse, uncomplicated; E66.01 Morbid (severe) obesity due to excess calories; B19.20 Unspecified viral hepatitis C without hepatic coma; F17.200 Nicotine dependence, unspecified, uncomplicated; Z86.14 Personal history of Methicillin resistant Staphylococcus aureus infection; Z87.19 Personal history of other diseases of the digestive system; Z20.822 Contact with and (suspected) exposure to COVID-19
CPT/HCPCS: J0131; J0736; J2060; J3370; Q9967

== ENCOUNTER 2024-11-23 15:06 | Emergency (ER) | payer OTHER ==
[~2024-11-23] VITALS: Ht 182.9 cm; Wt 132.0 kg
[~2024-11-23 15:06] MED LIST changes: +AMLODIPINE BESYL5 MG PO; +LEVOFLOXACIN250 M1 PO; +LINEZOLID600 MG PO; +LOSARTAN POTASS25 MG PO; -MIDAZOLAM HCL 2 MG/2 ML VIAL IV ONE; -PROPOFOL 200 MG/20 ML VIAL IV ONE; +SUBOXONE1 MI1 PO
[2024-11-23 15:11] VITALS: BP 132/89
[2024-11-23] MEDS ORDERED: VANCOMYCIN HCL 2 GM in SODIUM CHLORIDE 0.9% 500 ML IV ONE (15:25)
[2024-11-23 15:41] VITALS: BP 120/72
[2024-11-23 16:01] VITALS: BP 131/52
[2024-11-23] MEDS ORDERED: DiphenhydrAMINE HCL 25 MG CPLT PO ONE (16:50)
[2024-11-23] MEDS ORDERED: DOXYCYCL HYC100 M4 PO (17:10)
[2024-11-23 17:11] VITALS: BP 131/52
[2024-11-25] MEDS ORDERED: CLEOCIN150 M1 PO (12:41)
== END 2024-11-23 17:18 | disposition home or self-care (01) | DRG 603 ==
LOC: ED 15:06
DX: L02.211 Cutaneous abscess of abdominal wall (principal); B95.62 Methicillin resistant Staphylococcus aureus infection as the cause of diseases classified elsewhere; I10 Essential (primary) hypertension; F31.9 Bipolar disorder, unspecified; F41.9 Anxiety disorder, unspecified; Z72.0 Tobacco use
CPT/HCPCS: J3370

== ENCOUNTER 2025-01-09 18:56 | Emergency (ER) | payer OTHER ==
[~2025-01-09] VITALS: Ht 182.9 cm; Wt 115.0 kg
[~2025-01-09 18:56] MED LIST changes: +CLEOCIN150 M1 PO; +DOXYCYCL HYC100 M4 PO
[2025-01-09] MEDS ORDERED: FLUORESCEIN SODIUM 1 MG EA OU ONE (19:20)
[2025-01-09] MEDS ORDERED: OPHTHALMIC IRRIGATION SOLUTION 118 ML BTL OU ONE (19:25)
[2025-01-09] MEDS ORDERED: TETRACAINE HCL 0.5 %/4 ML SOL OU ONE (19:25)
[2025-01-09] MEDS ORDERED: SODIUM CHLORIDE 0.9% 1,000 ML IV ONE (19:29)
[2025-01-09] MEDS ORDERED: TOBREX OPTH5 ML/BTL OU (19:39)
[2025-01-09 20:29] VITALS: BP 142/90
== END 2025-01-09 20:33 | disposition home or self-care (01) | DRG 125 ==
LOC: ED 18:56
DX: S05.92XA Unspecified injury of left eye and orbit, initial encounter (principal); F11.20 Opioid dependence, uncomplicated; I10 Essential (primary) hypertension; F31.9 Bipolar disorder, unspecified; F41.9 Anxiety disorder, unspecified; F17.210 Nicotine dependence, cigarettes, uncomplicated; W44.8XXA Other foreign body entering into or through a natural orifice, initial encounter